=== PATIENT | male | born 1965 | race Caucasian/White ===

== ENCOUNTER → 2021-05-24 13:01 | Outpatient (CLI) | payer MEDICARE, MEDICAID, SELFPAY ==
--- NOTE | 2021-05-24 13:06 | DI.RAD.S_ITS ---
PROCEDURE: XR FOOT LT MIN 3V INDICATIONS: possible dislocation TECHNIQUE: 3 views of the foot were acquired. COMPARISON: None. FINDINGS: Bones: Acute oblique fracture through distal shaft of 5th proximal phalanx is seen with lateral and plantar displacement at fracture site. No other fracture is seen. No dislocation. No suspicious bony lesions. Soft tissues: No tibiotalar joint effusion. Achilles tendon appears normal. IMPRESSION: Acute slightly displaced fracture involving 5th proximal phalangeal shaft as above. Dictated by: Mansoor Alexander M.D. on 05/24/2021 at 13:30 Approved by: Mansoor Alexander M.D. on 05/24/2021 at 13:31
== END ==
PROVIDERS: Family Provider Family Medicine; PCP Family Medicine; Referring Provider Nurse Practitioner Family; Visit Provider Nurse Practitioner Family
DX: S92.532A Displaced fracture of distal phalanx of left lesser toe(s), initial encounter for closed fracture (principal); X58.XXXA Exposure to other specified factors, initial encounter
CPT/HCPCS: 73630

== ENCOUNTER 2021-08-27 12:52 | Emergency (ER) | payer OTHER, MEDICAID, SELFPAY ==
[2021-08-27 13:25] VITALS: BP 160/91; PULSE 75; RESP 18; TEMP 36.7; O2SAT 97; BMI 22.7
--- NOTE | 2021-08-27 13:59 | DI.RAD.S_ITS ---
PROCEDURE: XR CHEST 2V INDICATIONS: Diffuse crackles on auscultation, smoking history TECHNIQUE: 2 views of the chest were acquired. COMPARISON: [facility], , CHEST 2 VIEW, 08/17/2016, 10:25. FINDINGS: Surgical changes and devices: None. Lungs and pleura: Increased reticular markings in bilateral lung valdez are seen with mild emphysematous changes. No focal infiltrate. No pleural effusions or pneumothorax. Mediastinum: Mediastinal contours are normal. Heart size is normal. Bones and chest wall: No suspicious bony abnormalities. Soft tissues appear unremarkable. IMPRESSION: Mild COPD and suggestion of chronic interstitial lung parenchymal disease. No definite focal infiltrate. No pleural effusion or pneumothorax. Dictated by: Mansoor Alexander M.D. on 08/27/2021 at 14:57 Approved by: Mansoor Alexander M.D. on 08/27/2021 at 15:00
--- NOTE | 2021-08-27 14:00 | ED.ABDPAIN ---
HPI - Abdominal Pain <Ignacio Jerez PA-C - Last Filed: 08/27/21 20:03> General Chief Complaint: Abdominal Pain Stated Complaint: Gastritis Time Seen by Provider: 08/27/21 13:17 Source: patient Mode of arrival: Ambulatory History of Present Illness HPI narrative: Patient is a 55-year-old male presenting to the emergency department today for an evaluation of left-sided abdominal pain. Patient states that his pain began at approximately 2:00 a.m. this morning, noting that he also experienced 1 episode of diarrhea this morning. Patient reports associated nausea. Of note, patient states he has not seen his primary care provider in 2 or more years. Patient denies fever, chills, chest pain, constipation, vomiting, dysuria, hematuria, flank pain, or any other concerning symptoms. No further concerns were voiced at this time. Patient reports that he has a 2 pack per day smoking history for the past 30 years. Related Data Home Medications Medication Instructions Recorded Confirmed haloperidol decanoate 100 mg/mL 100 mg IM Q4W 07/10/19 07/10/19 intramuscular solution (Haldol Decanoate) Previous Rx's Medication Instructions Recorded dicyclomine 10 mg capsule 10 mg PO BID #20 cap 08/27/21 Allergies Allergy/AdvReac Type Severity Reaction Status Date / Time codeine [CODEINE] Allergy Unknown Verified 05/24/21 14:06 Review of Systems <Ignacio Jerez PA-C - Last Filed: 08/27/21 20:03> Constitutional Constitutional: Denies chills, Denies fatigue, Denies fever(s), Denies frequent falls, Denies lethargy and Denies weakness Eyes Eyes: Denies loss of vision ENT Ears, Nose, Mouth, and Throat: Denies dizziness and Denies neck pain Cardiovascular Cardiovascular: Denies chest pain, Denies irregular heart rhythm, Denies lightheadedness, Denies palpitations, Denies dyspnea, Denies dyspnea on exertion and Denies orthopnea Respiratory Respiratory: Denies cough, Denies dyspnea, Denies dyspnea on exertion and Denies wheezing Gastrointestinal Gastrointestinal: Reports abdominal pain (Left lower quadrant), Denies change in bowel habits, Denies constipation, Reports diarrhea, Reports nausea and Denies vomiting Genitourinary Genitourinary: Denies hematuria, Denies flank pain, Denies urinary incontinence and Denies urinary urgency Musculoskeletal Musculoskeletal: Denies back pain, Denies muscle weakness, Denies neck pain, Denies numbness and Denies tingling Integumentary/Breasts Skin/Breast: Denies pruritus, Denies erythema, Denies rash and Denies wounds Neurologic Neurologic: Denies behavioral changes, Denies confusion, Denies dizziness, Denies frequent falls, Denies loss of vision, Denies numbness, Denies tingling and Denies weakness Psychiatric Psychiatric: Denies behavioral changes and Denies confusion Endocrine Endocrine: Denies fatigue and Denies palpitations Allergic/Immunologic Allergic/Immunologic: Denies wheezing Patient History <Ignacio Jerez PA-C - Last Filed: 08/27/21 20:03> Medical History Current every day smoker Marijuana smoker Paranoid schizophrenia Surgical History H/O rhinoplasty History of dental surgery Social History Smoking Status: Current every day smoker Smoking Status: Current every day smoker alcohol intake frequency: 3 or more drinks per day Substance Use Type: marijuana Exam <Ignacio Jerez PA-C - Last Filed: 08/27/21 20:03> Narrative Exam Narrative: GENERAL: 55 year old patient appears stated age. Well-developed patient, in no acute distress. HEAD: Atraumatic. Normocephalic. EYES: Pupils equal round and reactive. Extraocular motions intact. No scleral icterus. No injection or drainage. ENT: Nose without bleeding, purulent drainage. Throat without erythema, tonsillar hypertrophy or exudate. Airway patent. NECK: Trachea midline. Non tender CARDIOVASCULAR: Regular rate and rhythm without murmurs, gallops, or rubs. RESPIRATORY: Diffuse crackles noted throughout all lung valdez to auscultation. Breath sounds equal bilaterally. No increased work of breathing. GASTROINTESTINAL: Abdomen soft, nondistended. Mild tenderness to palpation noted over the left lower quadrant. No masses noted across the abdomen. No surgical incision scars noted. EXTREMITIES: No edema or joint tenderness. BACK: Nontender without deformity or crepitance. No flank tenderness. NEURO: AOx3. SKIN: No rash or erythema of visible areas Initial Vital Signs Initial Vital Signs: Vital Signs Temperature 98.1 F 08/27/21 13:25 Pulse Rate 75 08/27/21 13:25 Respiratory Rate 18 08/27/21 13:25 Blood Pressure 160/91 H 08/27/21 13:25 Pulse Oximetry 97 08/27/21 13:25 Course <Ignacio Jerez PA-C - Last Filed: 08/27/21 20:03> Course Course Narrative: CBC, CMP, lipase, EKG, chest x-ray ordered. Orders Ordered: ED Orders 08/27/21 13:55 EKG-12 Lead Stat 08/27/21 13:59 XR chest 2V Stat 08/27/21 14:00 CBC Auto Diff [Complete Blood Count AUTO DIFF] Stat CMP [Comprehensive Metabolic Panel] Stat Lipase Stat Vital Signs Vital signs: Vital Signs - 8 hr 08/27/21 13:25 08/27/21 14:06 08/27/21 15:38 Temperature 98.1 F Pulse Rate 75 74 82 Respiratory Rate 18 Blood Pressure 160/91 H 154/95 H 133/87 Pulse Oximetry 97 97 95 MDM - Abdominal Pain <Ignacio Jerez PA-C - Last Filed: 08/27/21 20:03> Lab Data Result diagrams: 08/27/21 14:00 08/27/21 14:00 Labs: Lab Results 08/27/21 08/27/21 Range/Units 14:00 14:00 WBC 10.3 (4.5-11.0) X10^3/uL RBC 4.83 (4.5-5.9) X10^6/uL Hgb 15.0 (13.5-17.5) g/dL Hct 42.6 (41-53) % MCV 88.2 (80-100) fL MCH 31.0 (26-34) PG MCHC 35.1 (30-36) % RDW 14.6 (11.6-14.8) % Plt Count 253 (150-400) X10^3/uL Neut % (Auto) 76.0 H (50-75) % Lymph % (Auto) 12.3 L (25-40) % [place] % (Auto) 10.2 (3-14) % Eos % (Auto) 1.2 L (2-4) % Baso % (Auto) 0.3 (0-2) % Neut # (Auto) 7800 H (4835-3717) /uL Lymph # (Auto) 1300 (0863-9593) /uL [place] # (Auto) 1100 H (0-900) /uL Eos # (Auto) 100 (0-450) /uL Baso # (Auto) 0 (0-100) /uL Sodium 136 L (137-145) mmol/L Potassium 3.9 (3.4-5.1) mmol/L Chloride 105 (98-107) mmol/L Carbon Dioxide 28 (22-32) mmol/L BUN 8 L (9-20) mg/dL Creatinine 0.61 L (0.66-1.25) mg/dL Estimated GFR > 60.0 (>60) mL/min BUN/Creatinine Ratio 13.1 (6-22) Glucose 97 (70-100) mg/dL Calcium 9.6 (8.4-10.2) mg/dL Total Bilirubin 0.6 (0.2-1.3) mg/dL AST 20 (17-59) IU/L ALT 14 (<50) IU/L Alkaline Phosphatase 35 L (38-126) U/L Total Protein 7.7 (6.3-8.2) g/dL Albumin 4.4 (3.5-5.0) g/dL Globulin 3.3 (1.7-4.1) g/dL Albumin/Globulin Ratio 1.3 (1.0-2.8) Lipase 65 (23-300) U/L Point of care testing: Urine Dip Bedside Urine Glucose Negative Bedside Urine Bilirubin - Negative Bedside Urine Ketone + 15 Urine Specific [place] 1.020 Bedside Urine Occult Blood - Negative Bedside Urine pH 6.5 Bedside Urine Protein - Negative Bedside Urine Urobilinogen - Negative Bedside Urine Nitrite - Negative Bedside Urine Leukocytes - Negative Esterase Imaging Data Chest x-ray: Radiologist's Impression: PROCEDURE:? XR CHEST 2V ? INDICATIONS:? Diffuse crackles on auscultation, smoking history ? TECHNIQUE:? 2 views of the chest were acquired.? ? COMPARISON:? [facility], , CHEST 2 VIEW, 08/17/2016, 10:25. ? FINDINGS:? ? Surgical changes and devices:? None.? ? Lungs and pleura:? Increased reticular markings in bilateral lung valdez are seen with mild emphysematous changes.? No focal infiltrate.? No pleural effusions or pneumothorax.? ? ? Mediastinum:? Mediastinal contours are normal.? Heart size is normal.? ? Bones and chest wall:? No suspicious bony abnormalities.? Soft tissues appear unremarkable.? ? IMPRESSION:? Mild COPD and suggestion of chronic interstitial lung parenchymal disease.? No definite focal infiltrate.? No pleural effusion or pneumothorax. ? ? Dictated by: Mansoor Alexander M.D. on 08/27/2021 at 14:57 ? ? Approved by: Mansoor Alexander M.D. on 08/27/2021 at 15:00 ? MDM Narrative Medical decision making narrative: To consider gastroenteritis versus diverticulitis versus diverticulosis versus constipation versus viral diarrhea. Overall physical examination, history, vital signs, and lab work reassuring. Discussed results of lab work and imaging with patient. I also discussed the possibility of ordering a CT of the abdomen, however the patient declines this at this time. He states he would like to go home and give it 24 hours to see if his pain improves. I discussed risks of foregoing the CT with the patient, however he states he feels comfortable being discharged home. I discussed the results of the chest x-ray with patient and advised him to follow-up with his primary care provider. Patient states understanding and agrees to plan. Strict return precautions were discussed with the patient prior to discharge. Discharge Plan Departure Patient Disposition: Home Clinical Impression: Abdominal pain, Smoker unmotivated to quit, Diarrhea Instructions: DI for Abdominal Pain-Adult Activity Restrictions/Additional Instructions: *You have been diagnosed with abdominal pain diarrhea *What to do: *Please continue to take your regular medications as directed. [X] New medication prescriptions sent to your pharmacy: [facility] [ ] New medication written as a paper prescription [ ] No new medications given *Please follow up with your primary care provider in 2-3 days, call for an appointment. Let them know you were seen in the Emergency Department and that we ask that you be seen in follow up. We will electronically transmit a record of today's note if your PCP is in our system *If you do not have a primary care provider please contact the [facility] Resource line at [phone]. They will ask some questions about your medical history and help get you set up with a doctor in the community. *Return to Emergency Department if you should have any new, worsening or concerning symptoms, such as fever greater than 101 F, shaking chills, worsening pain, persistent vomiting, persistent diarrhea or other bothersome symptoms Prescriptions: New dicyclomine 10 mg capsule 10 mg PO BID Qty: 20 0RF No Action haloperidol decanoate [Haldol Decanoate] 100 mg/mL solution 100 mg IM Q4W 0RF Referrals: Ken Jensen MD [Primary Care Provider] -
[2021-08-27 14:06] VITALS: BP 154/95; PULSE 74; O2SAT 97
[2021-08-27 14:10] LABS: Add Manual Diff / Slide Review NO; Basophils Absolute Auto 0 /uL (0-100); Basophils Percent Auto 0.3 % (0-2); Eosinophils Absolute Auto 100 /uL (0-450); Eosinophils Percent Auto 1.2 % (2-4); Hematocrit 42.6 % (41-53); Lymphocytes Absolute Auto 1300 /uL (1100-4500); Lymphocytes Percent Auto 12.3 % (25-40); Mean Corpuscular HGB Conc 35.1 % (30-36); Mean Corpuscular Volume 88.2 fL (80-100); Monocytes Absolute Auto 1100 /uL (0-900); Monocytes Percent Auto 10.2 % (3-14); Neutrophils Absolute Auto 7800 /uL (1500-7000); Platelet Count 253 X10^3/uL (150-400); Red Blood Cell Count 4.83 X10^6/uL (4.5-5.9); Red Cell Distribution Width 14.6 % (11.6-14.8); White Blood Cell Count 10.3 X10^3/uL (4.5-11.0)
[2021-08-27 14:26] LABS: Alanine Aminotransferase 14 IU/L (<50); Albumin 4.4 g/dL (3.5-5.0); Albumin Globulin Ratio 1.3 (1.0-2.8); Alkaline Phosphatase 35 U/L (38-126); Aspartate Aminotransferase 20 IU/L (17-59); BUN Creatinine Ratio 13.1 (6-22); Bilirubin Total 0.6 mg/dL (0.2-1.3); Blood Urea Nitrogen 8 mg/dL (9-20); Calcium 9.6 mg/dL (8.4-10.2); Carbon Dioxide 28 mmol/L (22-32); Chloride 105 mmol/L (98-107); Estimated Glomerular Filt Rate > 60.0 mL/min (>60); Globulin 3.3 g/dL (1.7-4.1); Glucose 97 mg/dL (70-100); HEMOLYSIS < 15 (0-50); Lipase 65 U/L (23-300); Potassium 3.9 mmol/L (3.4-5.1); Sodium 136 mmol/L (137-145); Total Protein 7.7 g/dL (6.3-8.2)
[2021-08-27 15:38] VITALS: BP 133/87; PULSE 82; O2SAT 95
== END 2021-08-27 15:39 | disposition home or self-care (01) ==
PROVIDERS: Emergency Provider Physician Assistant; Family Provider Family Medicine; PCP Family Medicine
DX: R10.32 Left lower quadrant pain (principal); R19.7 Diarrhea, unspecified; R03.0 Elevated blood-pressure reading, without diagnosis of hypertension
CPT/HCPCS: 36415; 71046; 80053; 81003; 83690; 85025; 93005; 93010; 99283; 99284

== ENCOUNTER → 2021-09-24 10:04 | Outpatient (CLI) | payer OTHER, MEDICAID, SELFPAY ==
--- NOTE | 2021-09-24 | DI.RAD.S_ITS ---
PROCEDURE: XR CHEST 2V INDICATIONS: Chronic cough TECHNIQUE: 2 views of the chest were acquired. COMPARISON: [facility], CR, XR CHEST 2V, 08/27/2021, 14:26. FINDINGS: Surgical changes and devices: None. Lungs and pleura: Mildly coarsened interstitial markings. No consolidation, pleural effusions or pneumothorax. Mediastinum: Mediastinal contours are normal. Heart size is normal. Bones and chest wall: No suspicious bony abnormalities. Soft tissues appear unremarkable. IMPRESSION: No acute cardiopulmonary abnormality. Dictated by: Seymour Carney M.D. on 09/24/2021 at 10:32 Approved by: Seymour Carney M.D. on 09/24/2021 at 10:33
== END ==
PROVIDERS: Family Provider Family Medicine; PCP Family Medicine; Referring Provider Family Medicine; Visit Provider Family Medicine
DX: R05.3 Chronic cough (principal)
CPT/HCPCS: 71046

== ENCOUNTER 2023-01-18 09:31 | Day surgery (SDC) | payer OTHER, MEDICAID, SELFPAY ==
[2023-01-17 07:34] VITALS: BMI 23.6
[2023-01-18] VITALS (7 sets, daily range): BP systolic 109–175; BP diastolic 72–100; PULSE 61–92; RESP 14–22; TEMP 36.2–36.7; O2SAT 92–96; BMI 23.6
[2023-01-18] MEDS: LACTATED RINGERS 1,000 ML 42 ML IV ×2 (10:28→12:58)
--- NOTE | 2023-01-18 11:33 | PM.PREOP ---
Pre-operative Note Interval Note History & Physical reviewed/Exam performed by Physician: Yes Changes to H&P: No
[2023-01-18] MEDS: CEFAZOLIN 2 GM/100 ML PREMIX 100 ML IV (12:20)
--- NOTE | 2023-01-18 12:37 | SUR.OPER ---
Supine on padded OR bed, head on pillow, arms secured on padded arm boards at <90 degrees abduction, legs uncrossed, safety belt at thigh, tape over blanket over lower legs.
[2023-01-18] MEDS: BUPIVACAINE 0.25% (PF) VIAL 30 ML INJ (12:48)
[2023-01-18] MEDS: KETOROLAC 30 MG/ML VIAL IV (14:56)
--- NOTE | 2023-01-18 15:06 | P.OP_ITS ---
Operative Date/Time/Diagnoses Date of procedure: 01/18/23 Time of procedure: 15:06 Pre-op diagnosis: Bilateral inguinal hernia Post-op diagnosis: same Procedure & Clinicians Procedure: Laparoscopic repair of bilateral inguinal hernia Same procedure as scheduled: Yes Indications: Symptomatic bilateral inguinal hernia here for elective repair Surgeon: Evangelist Meier Word Processing Machine Operator: Cory Bailey Click Yes if Unassisted: Yes Anesthesia Type: General Operative Notes Findings: Left small direct defect. Small cord lipoma on the left. Right inguinal hernia large direct floor defect with cord lipoma no indirect hernia. Specimen(s): none sent Estimated Blood Loss (mL): 10 Procedure in detail: The patient was brought to the operating room and placed supine on the table. Bilateral sequential compression devices were applied. General anesthesia was induced and they were intubated with an endotracheal tube. A cruz cath was placed in sterile fashion. They received 2 g Ancef prior to skin incision. They were prepped and draped in sterile fashion. A time out was performed to ensure the correct patient, procedure and necessary equipment within the operating room. The skin was infiltrated with 0.25% bupivicaine. A 1 cm supra umbilical midline incision was made. The fascia was sharply incised and the abdomen entered traumatically. A 10mm balloon port was placed and pneumoperitoneum was established at 15mm Hg. Inspection of the abdomen demonstrated no evidence of i njury upon entry. Two 5 mm ports were then placed under direct visualization in the right and left lower quadrant lateral to the rectus muscle. Bilateral direct hernia defects were noted right greater than left. There were adhesions between the sigmoid colon and the left pelvic side wall which were carefully dissected. Starting on the left side the peritoneum 4 cm superior to the deep inguinal ring between the medial umbilical ligament and the anterior superior iliac spine was incised. The medial preperitoneal dissection was carried out into the space of Retzius bluntly, the bladder was swept inferiorly, the pubis and Anatoliy's ligament were identified. Next attention was turned towards the lateral aspect of the peritoneal flap. The preperitoneal fat with the testicular vessels was carefully dissected off the inferior peritoneal flap. The cord was carefully inspected there was a cord lipoma which was skeltonized off the cord preserving the testicular vessels and the vas deferns, no evidence of an indirect defect.. The attachements to the direct hernia sac were divided and the direct defect was reduced. A large Bard 3D Max mesh was then placed into the abdomen and positioned such that the myopectineal orifice was completely covered with good overlap on all sides. The peritoneal flap was then repositioned back to its original position and a running V lock suture was used to close the peritoneum such that no bowel could herniate into the preperitoneal space. The area was examined for hemostasis. Next the right side was addressed. The peritoneum 4 cm superior to the deep inguinal ring between the medial umbilical ligament and the anterior superior iliac spine was incised. The medial preperitoneal dissection was carried out into the space of Retzius bluntly, the bladder was swept inferiorly, the pubis and Anatoliy's ligament were identified. Next attention was turned towards the lateral aspect of the peritoneal flap. The preperitoneal fat with the testicular vessels was carefully dissected off the inferior peritoneal flap. The cord was carefully inspected there was no evidence of indirect defect there was a small cord lipoma. The attachements to the direct hernia sac were divided and the direct defect was reduced. A large Bard 3D Max mesh was then placed into the abdomen and positioned such that the myopectineal orifice was completely covered with good overlap on all sides. The peritoneal flap was then repositioned back to its original position and a running V lock suture was used to close the peritoneum such that no bowel could herniate into the preperitoneal space. The area was examined for hemostasis. The 5mm trocars were removed under direct visualization and pneumoperitoneum was deflated through the umbilical trocar, The fascia at the umbilicus was closed with 0-Vicryl in figure of 8 fashion, skin closed with 4-0 Monocyl followed by Dermabond. The sponge and instrument count at the end of the case was correct. Both testicles were entirely within the scrotum at the end of the case. The patient emerged from anesthsia was extubated and transferred to recovery in stable condition. Complications: none Post-operative Condition: stable Disposition: same day surgery
[2023-01-18] MEDS: OXYCODONE IR 5 MG TABLET PO (15:08)
[2023-01-18] MEDS: ONDANSETRON 4 MG/2 ML INJ IV (15:29)
== END 2023-01-18 16:05 | disposition home or self-care (01) ==
PROVIDERS: Family Provider Family Medicine; PCP Family Medicine; Referring Provider Surgery; Visit Provider Surgery
PROC: 0YQ64ZZ Repair Left Inguinal Region, Percutaneous Endoscopic Approach (ICD-10-PCS; CPT 49650; principal; 2023-01-18 11:15)
DX: K40.20 Bilateral inguinal hernia, without obstruction or gangrene, not specified as recurrent (principal); D17.6 Benign lipomatous neoplasm of spermatic cord
CPT/HCPCS: 49650; J0690; J1100; J1885; J2250; J2405; J2704; J3010; J3490

== ENCOUNTER 2023-07-19 15:55 | Inpatient (IN) | payer OTHER, MEDICAID, SELFPAY ==
[2023-07-19] VITALS (11 sets, daily range): BP systolic 113–120; BP diastolic 77–83; PULSE 101–112; RESP 16–28; TEMP 36.4–36.5; O2SAT 93–98; BMI 23.6; BMI 19.8
--- NOTE | 2023-07-19 16:11 | DI.RAD.S_ITS ---
PROCEDURE: XR CHEST 1V INDICATIONS: suspected sepsis TECHNIQUE: One view of the chest was acquired. COMPARISON: [facility], CR, XR CHEST 2V, 09/24/2021, 10:00. [facility], CR, XR CHEST 2V, 08/27/2021, 14:26. FINDINGS: Surgical changes and devices: None. Lungs and pleura: Massive left pleural effusion with left-sided atelectasis. Mediastinum: Mediastinal contours appear normal. Heart size is normal. Bones and chest wall: No suspicious bony lesions. Overlying soft tissues appear unremarkable. IMPRESSION: Massive left pleural effusion. Dictated by: Jose Vasquez M.D. on 07/19/2023 at 16:53 Approved by: Jose Vasquez M.D. on 07/19/2023 at 16:54
--- NOTE | 2023-07-19 16:25 | ED.SOB ---
HPI - SOB/Dyspnea General Chief Complaint: Shortness of Breath/Dyspnea Stated Complaint: quite smoking last mon-cant breathetemphardtostand Time Seen by Provider: 07/19/23 16:07 Source: patient Mode of arrival: Wheelchair History of Present Illness HPI Narrative: 57-year-old male with history of schizoaffective disorder presents for shortness of breath, gradually worsening over the last month. Patient states that 1 month ago he quit smoking cigarettes, drinking alcohol, and using marijuana, but he continues to feel short of breath. Today was the worst it has been and so we came in for evaluation. Patient cachectic, appearing much older than stated age on evaluation. Related Data Home Medications Medication Instructions Recorded Confirmed aripiprazole 2 mg tablet (Abilify) 2 mg PO DAILY 01/17/23 02/02/23 Previous Rx's Medication Instructions Recorded acetaminophen 325 mg capsule 650 mg (2 x 325 mg) PO QID PRN 01/18/23 (Tylenol) pain #60 caps ibuprofen 200 mg tablet 400 mg (2 x 200 mg) PO Q6H #60 tabs 01/18/23 Allergies Allergy/AdvReac Type Severity Reaction Status Date / Time codeine [CODEINE] Allergy Unknown Verified 07/19/23 16:05 Review of Systems Review of Systems Narrative: Negative except as noted above Patient History Medical History (Updated 07/19/23 @ 18:25 by Cecille Funez MD) Substance abuse Excessive drinking alcohol Shortness of breath Sinus drainage Chronic cough Hypertension Marijuana smoker Current every day smoker Paranoid schizophrenia Surgical History H/O rhinoplasty History of dental surgery Social History household members: friend(s) Smoking Status: Former smoker alcohol intake: current Smoking Status: Former smoker alcohol intake frequency: 3 or more drinks per day Substance Use Type: does not use Exam Initial Vital Signs Initial Vital Signs: Vital Signs Temperature 97.6 F 07/19/23 16:01 Pulse Rate 112 H 07/19/23 16:01 Respiratory Rate 28 H 07/19/23 16:01 Blood Pressure 120/80 07/19/23 16:01 Pulse Oximetry 95 07/19/23 16:01 Oxygen Delivery Method Room Air 07/19/23 16:01 Const: Awake, alert, and awake, appears markedly older than stated age Eyes: PERRL, EOMI, conjunctiva normal ENT: Atraumatic, extremely poor dentition, mucous membranes moist Cardiac: regular rate, regular rhythm RESP: Unlabored, absent on the left side GI: Atraumatic, soft, nontender, nondistended, no rebound, no guarding MSK: Atraumatic, full range of motion, pulses equal Skin: Warm, Dry, intact, poor skin turgor Neuro: AO x3, CN II-XII grossly intact, moves all extremities Course Orders Ordered: ED Orders 07/19/23 16:11 XR chest 1V Stat Blood Culture Stat RT Consult Eval and Treat NOW 07/19/23 16:21 BNP [NT-proBNP (BNP-Adult 18+)] Stat Complete Blood Count AUTO DIFF Stat Comprehensive Metabolic Panel Stat Lactate (Lactic Acid) Stat Lipase Stat PTT Partial Thromboplastin Wilberto Stat Procalcitonin Stat Prothrombin Time INR Stat 07/19/23 16:41 CT chest w con Stat 07/19/23 17:29 EKG-12 Lead Stat Albuterol/Ipratropium (Albuterol/Ipratropium 3 Ml Ampul) 3 ml INH Q1H PRN PRN Reason: Shortness Of Breath Last Admin: 07/19/23 16:30 Dose: 3 ml Documented By: JOYA Ondansetron HCl (Ondansetron 4 Mg Odt) 4 mg SL NOW PRN PRN Reason: Nausea And Vomiting Discontinued Medications Sodium Chloride (Normal Saline 0.9%) 1,000 mls @ 1,000 mls/hr IV BOLUS ONE Stop: 07/19/23 17:10 Last Admin: 07/19/23 17:17 Dose: 1,000 mls/hr Documented By: HI Cefepime HCl 2 gm/ Sodium (Chloride) 100 mls @ 200 mls/hr IV NOW ONE Stop: 07/19/23 16:42 Last Admin: 07/19/23 17:18 Dose: 200 mls/hr Documented By: HI Ondansetron HCl (Ondansetron 4 Mg/2 Ml Inj) 4 mg IV NOW PRN PRN Reason: Nausea And Vomiting Last Admin: 07/19/23 17:18 Dose: 4 mg Documented By: HI Vital Signs Vital signs: Vital Signs - 8 hr 07/19/23 16:01 07/19/23 16:22 07/19/23 16:23 Temperature 97.6 F Pulse Rate 112 H 102 H 103 H Respiratory Rate 28 H 27 H 27 H Blood Pressure 120/80 Pulse Oximetry 95 93 94 Oxygen Delivery Method Room Air 07/19/23 16:23 07/19/23 16:30 07/19/23 16:38 Temperature Pulse Rate 104 H 102 H Respiratory Rate 27 H 20 Blood Pressure 113/77 Pulse Oximetry 96 94 Oxygen Delivery Method Room Air 07/19/23 17:00 07/19/23 17:30 07/19/23 18:00 Temperature Pulse Rate 101 H 102 H 101 H Respiratory Rate 26 H 21 24 Blood Pressure Pulse Oximetry 97 95 94 Oxygen Delivery Method 07/19/23 18:30 Temperature Pulse Rate 108 H Respiratory Rate 26 H Blood Pressure Pulse Oximetry 95 Oxygen Delivery Method MDM - SOB/Dyspnea Differential Diagnosis Differential diagnosis: Likely acute exacerbation of chronic obstructive airways disease, congestive heart failure and community acquired pneumonia Lab Data 07/19/23 16:21 07/19/23 16:21 Labs: Lab Results 07/19/23 Range/Units 16:21 WBC 20.8 H (4.5-11.0) X10^3/uL RBC 4.04 L (4.5-5.9) X10^6/uL Hgb 11.5 L (13.5-17.5) g/dL Hct 33.9 L (41-53) % MCV 83.8 (80-100) fL MCH 28.4 (26-34) PG MCHC 33.8 (30-36) % RDW 14.9 H (11.6-14.8) % Plt Count 661 H (150-400) X10^3/uL Neut % (Auto) Not Reportable Lymph % (Auto) Not Reportable [place] % (Auto) Not Reportable Eos % (Auto) Not Reportable Baso % (Auto) Not Reportable Lymph # (Auto) Not Reportable [place] # (Auto) Not Reportable Baso # (Auto) Not Reportable Total Counted 100 Seg Neutrophils % 84.0 H (38-70) % Band Neutrophils % 1.0 L (3-7) % Lymphocytes % (Manual) 15.0 L (25-45) % Neutrophils # (Manual) 70300 H (2926-0320) /uL RBC Morphology Normal morphology PT 20.3 H (9.4-12.5) SECONDS INR 1.8 H (0.9-1.3) APTT 27 (25.1-36.5) SECONDS Sodium 122 L (137-145) mmol/L Potassium 4.0 (3.4-5.1) mmol/L Chloride 89 L (98-107) mmol/L Carbon Dioxide 27 (22-32) mmol/L BUN 12 (9-20) mg/dL Creatinine 0.33 L (0.66-1.25) mg/dL Estimated GFR > 60 (>60) mL/min BUN/Creatinine Ratio 36.4 H (6-22) Glucose 118 H (70-100) mg/dL Lactate 1.3 (0.7-2.1) mmol/L Calcium 8.4 (8.4-10.2) mg/dL Total Bilirubin 0.6 (0.2-1.3) mg/dL AST 75 H (17-59) IU/L ALT 96 H (<50) IU/L Alkaline Phosphatase 64 (38-126) U/L NT-Pro-B Natriuret Pep 282 H (<125) pg/mL Total Protein 6.6 (6.3-8.2) g/dL Albumin 2.8 L (3.5-5.0) g/dL Globulin 3.8 (1.7-4.1) g/dL Albumin/Globulin Ratio 0.7 L (1.0-2.8) Lipase 62 (23-300) U/L Procalcitonin 0.21 (<0.5) ng/mL [facility] Narrative Medical decision making narrative: Cachectic and chronically unwell appearing patient with worsening shortness of breath. Preliminary chest x-ray shows near complete opacification of the left hemithorax, concern is for pleural effusion versus cancerous process. Laboratory work shows leukocytosis of uncertain specificity, however we will empirically treat with cefepime. Chest CT confirms large left-sided pleural effusion. Plan to admit for thoracentesis and further medical treatment. Discharge Plan Departure Patient Disposition: Admitted As Inpatient Clinical Impression: Pleural effusion, Acute dyspnea, Cachexia
[2023-07-19] MEDS: ALBUTEROL/IPRATROPIUM 3 ML AMPUL INH (16:30)
[2023-07-19 16:35] LABS: Hematocrit 33.9 % (41-53); Hemoglobin 11.5 g/dL (13.5-17.5); Mean Corpuscular HGB Conc 33.8 % (30-36); Mean Corpuscular Hemoglobin 28.4 PG (26-34); Mean Corpuscular Volume 83.8 fL (80-100); Platelet Count 661 X10^3/uL (150-400); Red Blood Cell Count 4.04 X10^6/uL (4.5-5.9); Red Cell Distribution Width 14.9 % (11.6-14.8); White Blood Cell Count 20.8 X10^3/uL (4.5-11.0)
[2023-07-19 16:40] LABS: Add Manual Diff / Slide Review YES
--- NOTE | 2023-07-19 16:41 | DI.CT.S_ITS ---
PROCEDURE: CT CHEST W CON INDICATIONS: ABNORMAL CXR TECHNIQUE: After the administration of intravenous contrast, 5 mm thick sections acquired from the pulmonary apices to the posterior costophrenic angles. 1 mm axial lung, 5 mm thick coronal and sagittal reformats and 7 mm axial MIP were acquired. For radiation dose reduction, the following was used: automated exposure control, adjustment of mA and/or kV according to patient size. COMPARISON: None. FINDINGS: Image quality: Excellent Lungs and pleura: The right lung has no focal consolidation, mass, pneumothorax, or pleural effusion. In the right middle lobe patchy areas of infiltrate are noted noted. The left line is opacified with a large pleural effusion which causes mass effect pushing the mediastinum from left to right. Adjacent compressive atelectasis in the left lung is seen. Mediastinum: Heart size is normal. No pericardial effusion. No mediastinal or hilar adenopathy by size criteria. Thoracic aorta and central pulmonary arteries are normal in size. Esophagus is normal in caliber. No hiatal hernia. Bones and chest wall: No suspicious bony lesions. No vertebral body compression fractures. No axillary or supraclavicular adenopathy by size criteria. No thyroid nodules which require sonographic follow up, per consensus guidelines. Upper Abdomen: Visualized upper abdominal solid organs appear normal. Upper abdominal bowel loops are normal in caliber. IMPRESSION: Large left pleural effusion encompassing the entire left lung and causing [id number] mediastinal shift. Dictated by: Ward Orourke M.D. on 07/19/2023 at 16:47 Approved by: Ward Orourke M.D. on 07/19/2023 at 16:50
[2023-07-19 16:48] LABS: INR 1.8 (0.9-1.3); Prothrombin Time 20.3 SECONDS (9.4-12.5)
[2023-07-19 16:50] LABS: PTT Partial Thromboplastin Tim 27 SECONDS (25.1-36.5)
[2023-07-19 16:51] LABS: Lactate (Lactic Acid) 1.3 mmol/L (0.7-2.1)
[2023-07-19 16:52] LABS: Alanine Aminotransferase 96 IU/L (<50); Albumin 2.8 g/dL (3.5-5.0); Albumin Globulin Ratio 0.7 (1.0-2.8); Alkaline Phosphatase 64 U/L (38-126); Aspartate Aminotransferase 75 IU/L (17-59); BUN Creatinine Ratio 36.4 (6-22); Bilirubin Total 0.6 mg/dL (0.2-1.3); Blood Urea Nitrogen 12 mg/dL (9-20); Calcium 8.4 mg/dL (8.4-10.2); Carbon Dioxide 27 mmol/L (22-32); Chloride 89 mmol/L (98-107); Estimated Glomerular Filt Rate > 60 mL/min (>60); Globulin 3.8 g/dL (1.7-4.1); Glucose 118 mg/dL (70-100); HEMOLYSIS < 15 (0-50); Lipase 62 U/L (23-300); Sodium 122 mmol/L (137-145); Total Protein 6.6 g/dL (6.3-8.2)
[2023-07-19 17:00] LABS: NT-proBNP (BNP-Adult 18+) 282 pg/mL (<125)
[2023-07-19 17:08] LABS: Procalcitonin 0.21 ng/mL (<0.5)
[2023-07-19] MEDS: SODIUM CHLORIDE 0.9% 1,000 ML 1000 ML IV (17:17)
[2023-07-19] MEDS: ONDANSETRON 4 MG/2 ML INJ IV (17:18)
[2023-07-19] MEDS: CEFEPIME 2 GM in SODIUM CHLORIDE 0.9% 100 ML IV (17:18)
[2023-07-19 17:30] LABS: Neutrophils Absolute Manual 17680 /uL (3000-5900); RBC Morphology Normal Morphology; Total Cells Counted 100
[2023-07-19 19:48] LABS: Appearance Urine UA CLEAR; Bilirubin Urine UA NEGATIVE (NEGATIVE); Color Urine UA YELLOW; Glucose Urine UA NEGATIVE (Negative); Ketones Urine UA TRACE (NEGATIVE); Leukocyte Esterase Urine UA NEGATIVE (NEGATIVE); Nitrite Urine UA NEGATIVE (Negative); Occult Blood Urine UA NEGATIVE (Negative); Protein Urine UA NEGATIVE (Negative); Specific Gravity Urine UA <=1.005 (1.000-1.035); pH Urine UA 6.5 (4.5-8.0)
[2023-07-19 19:58] LABS: Bacteria Urine None Seen; Culture Indicated Urine Cult Not Indicated; RBC Urine 0-1/HPF (0-5/HPF); Squamous Epithelial Cell Urine 0-1 /HPF (0-5/HPF); WBC Urine None Seen (0-5/HPF)
--- NOTE | 2023-07-19 20:21 | DI.RAD.S_ITS ---
PROCEDURE: XR CHEST 1V INDICATIONS: post-thoracentesis TECHNIQUE: One view of the chest was acquired. COMPARISON: [facility], CT, CT CHEST W CON, 07/19/2023, 16:52. [facility], CR, XR CHEST 1V, 07/19/2023, 16:17. [facility], CR, XR CHEST 2V, 09/24/2021, 10:00. FINDINGS: Surgical changes and devices: None. Lungs and pleura: Near complete opacification of the left hemithorax, similar. No pneumothorax. Large left pleural effusion. Mediastinum: Rightward shift of the mediastinal structures, similar. Heart size is obscured. Bones and chest wall: No suspicious bony lesions. Overlying soft tissues appear unremarkable. IMPRESSION: No pneumothorax post thoracentesis. Large left pleural effusion. Dictated by: Jack Pack M.D. on 07/19/2023 at 21:10 Approved by: Jack Pack M.D. on 07/19/2023 at 21:11
--- NOTE | 2023-07-19 20:25 | DI.US.S_ITS ---
PROCEDURE: US THORACENTESIS INDICATIONS: pleural effusion left TECHNIQUE: The indications, alternatives, benefits, risks, and complications of the procedure were explained to the patient. Written informed consent was obtained and placed in the chart. The chest was examined sonographically, and an appropriate site was chosen for thoracentesis. The skin was prepared and draped in the usual sterile fashion, and 1% lidocaine was infiltrated from the skin down through the pleural surface. A 19-gauge catheter-covered needle was then introduced into the pleural space, the catheter was advanced and the needle was withdrawn, and thereafter pleural fluid was aspirated. The catheter was then removed and a dressing was applied. COMPARISON: CT chest 07/19/2023. FINDINGS: Access site: Left hemithorax. Needle: One-Step centesis catheter with introducer needle. Fluid volume and description: 1100 cc of purulent and malodorous fluid Fluid sent for diagnostic testin cc were sent for diagnostic imaging as ordered by provider Medications: 1% lidocaine for local anaesthesia. Complications: None; post-procedural chest radiograph demonstrates no pneumothorax IMPRESSION: Large left pleural effusion with thin loculations status post successful thoracentesis. Findings are concerning for empyema. Recommend pulmonology/general surgery consult and drain placement. Findings and recommendations were conveyed to Dr. Estrada by Dr. Marcial at 4:00 p.m. on 07/20/2023. Approved by: Staci Marcial M.D. on 07/20/2023 at 18:48
[2023-07-19] MEDS: LORazepam 1 MG TABLET 2 MG PO (21:09)
[2023-07-19] MEDS: SODIUM CHLORIDE 0.9% 1,000 ML 125 ML IV (21:11)
[2023-07-20] VITALS (13 sets, daily range): BP systolic 101–120; BP diastolic 67–86; PULSE 87–114; RESP 16–24; TEMP 36.4–37.9; O2SAT 91–97
--- NOTE | 2023-07-20 | DI.RAD.S_ITS ---
PROCEDURE: XR CHEST 1V INDICATIONS: POST THORACENTESIS TECHNIQUE: One view of the chest was acquired. COMPARISON: [facility], CR, XR CHEST 1V, 07/19/2023, 20:39. [facility], CR, XR CHEST 1V, 07/19/2023, 16:17. FINDINGS: Surgical changes and devices: None. Lungs and pleura: Large left pleural effusion with rightward mediastinal shift. Pleural effusion has slightly decreased since prior radiograph 06/18/2023. No pneumothorax. Right lung is clear. Mediastinum: Mediastinum is unchanged. Bones and chest wall: No suspicious bony lesions. Overlying soft tissues appear unremarkable. IMPRESSION: Status post left thoracentesis with slightly decreased size of large left pleural effusion. No pneumothorax. Dictated by: Staci Marcial M.D. on 07/20/2023 at 18:35 Approved by: Staci Marcial M.D. on 07/20/2023 at 18:36
[2023-07-20] MEDS: ALBUTEROL 2.5 MG/3 ML NEB (ADULT) INH ×3 (03:05→16:55)
[2023-07-20] MEDS: CEFEPIME 2 GM in SODIUM CHLORIDE 0.9% 100 ML IV ×2 (04:49→17:26)
[2023-07-20] MEDS: MAG HYDROX/ALUM/SIMETH 30 ML UDC PO (04:51)
[2023-07-20] MEDS: SODIUM CHLORIDE 0.9% 1,000 ML 125 ML IV ×3 (04:52→22:24)
[2023-07-20 06:23] LABS: Add Manual Diff / Slide Review NO; Basophils Absolute Auto 100 /uL (0-100); Basophils Percent Auto 0.5 % (0-2); Eosinophils Absolute Auto 0 /uL (0-450); Eosinophils Percent Auto 0.2 % (2-4); Hematocrit 30.2 % (41-53); Hemoglobin 10.2 g/dL (13.5-17.5); Lymphocytes Absolute Auto 1200 /uL (1100-4500); Lymphocytes Percent Auto 6.4 % (25-40); Mean Corpuscular HGB Conc 33.6 % (30-36); Mean Corpuscular Hemoglobin 28.2 PG (26-34); Mean Corpuscular Volume 84.1 fL (80-100); Monocytes Absolute Auto 1500 /uL (0-900); Monocytes Percent Auto 8.3 % (3-14); Neutrophils Absolute Auto 15200 /uL (1500-7000); Neutrophils Percent Auto 84.6 % (50-75); Platelet Count 596 X10^3/uL (150-400); Red Cell Distribution Width 14.7 % (11.6-14.8)
[2023-07-20 06:40] LABS: Alanine Aminotransferase 79 IU/L (<50); Albumin 2.4 g/dL (3.5-5.0); Albumin Globulin Ratio 0.7 (1.0-2.8); Alkaline Phosphatase 61 U/L (38-126); Aspartate Aminotransferase 59 IU/L (17-59); BUN Creatinine Ratio 39.4 (6-22); Bilirubin Total 0.4 mg/dL (0.2-1.3); Blood Urea Nitrogen 13 mg/dL (9-20); Calcium 8.1 mg/dL (8.4-10.2); Carbon Dioxide 28 mmol/L (22-32); Chloride 93 mmol/L (98-107); Estimated Glomerular Filt Rate > 60 mL/min (>60); Globulin 3.4 g/dL (1.7-4.1); Glucose 121 mg/dL (70-100); HEMOLYSIS < 15 (0-50); Potassium 4.1 mmol/L (3.4-5.1); Sodium 124 mmol/L (137-145); Total Protein 5.8 g/dL (6.3-8.2)
[2023-07-20] MEDS: THIAMINE 100 MG TABLET PO (09:55)
[2023-07-20] MEDS: MULTIVITAMIN 1 TABLET 1 TAB PO (09:55)
[2023-07-20] MEDS: ENOXAPARIN 40 MG/0.4 ML SYRINGE SUBCUT (09:55)
[2023-07-20] MEDS: FOLIC ACID 1 MG TABLET PO (09:55)
--- NOTE | 2023-07-20 11:04 | DIET.CONS ---
Dietary Consultation Note Admission Date: 07/19/2023 19:13 Assessment: 57M admitted with SOB has PMH of schizoaffective DO. RD consulted for weight loss. Weight hx in EMR indicates a 12kg (17.5%) weight loss. He reports this weight loss occurred over 3 months (severe). Nutrition Focused Physical Exam: severe temporal depression, boxed shoulders, protruding clavicle, and depressed interosseous muscle. States this weight loss is r/t a schizophrenic episodeduring which he would eat less than once per day often. He could not eat due to food talks to me during such episodes. States he cannot even eat shakes during episodes. Has used ONS in the past to help with weight. Confirms adequate access to food via SNAP benefits and usual social security income. Aware of pantry options per report. Endorses improved appetite since admission with 100% PO. Ht: 170.18 cm Wt: 57.606 kg BMI: 19.8 UBW: 68kg Last BM: 07/18/23 (07/19/23 20:41) MNA: 10 Mitchell Score: 21 Diet: 07/19/23 Breakfast General (Regular) Diet Diet Modifications: Nutrition Percent Meal Consumed 100% 07/20/23 00:23 Labs: RBC 3.60 X10^6/uL (4.5-5.9) L 07/20/23 05:45 Hgb 10.2 g/dL (13.5-17.5) L 07/20/23 05:45 Hct 30.2 % (41-53) L 07/20/23 05:45 Creatinine 0.33 mg/dL (0.66-1.25) L 07/20/23 05:45 Lactate 1.3 mmol/L (0.7-2.1) 07/19/23 16:21 NT-Pro-B Natriuret Pep 282 pg/mL (<125) H 07/19/23 16:21 Nutrition Diagnosis: Acute severe protein calorie malnutrition r/t inadequate PO with reported schizophrenic episode aeb severe muscle mass/fat losses, >5% weight loss in one month, and reported <75% EER for one month. -The patient is at much higher risk for medical and surgical complications because of his malnutrition.? This increases the difficulty and complexity of medical and surgical interventions and increases the chances of poor outcomes such as morbidity and mortality. Interventions: 1. Discussed importance of high kcal/high pro intake 2. Reviewed ONS and home shakes nutrition 3. High kcal ONS BID while admitted 4. Encouraged 2-3 ONS after discharge so regain adequate muscle mass/weight EER: 102-114g PRO (1.8-2g/kg per malnutrition) ; 2200-2300kcal (38-40kcal/kg per BMI) Monitoring/Evaluations: RD f/u 3-4 days (ONS tolerance, weight, PO) Electronically Signed by: Kat Orellana 07/20/23 11:04 Clinical Dietitian [address] [address]
--- NOTE | 2023-07-20 11:41 | PM.HP.1 ---
History of Present Illness History of Present Illness Date Patient Seen: 07/20/23 Time Patient Seen: 09:00 Chief complaint: quite smoking last mon-cant breathetemphardtostand Narrative: CC: shortness of breath and cough Pleasant gentleman with generally well controlled schizophrenia presented to ED with worsening cough and shortness of breath yesterday, found to have elevated WBCs and a pleural effusion. Extensive 100 pack year smoking history. Quit smoking drinking last month. L sided thoracic whiteout on XR; planning to get thoracentesis, continuing antibiotics for now given leukocytosis with neutropenic predominance. He reports feeling ok, appetite is good he is able to get up to bathroom ok. [facility] Medical History (Updated 07/19/23 @ 18:25 by Cecille Funez MD) Substance abuse Excessive drinking alcohol Shortness of breath Sinus drainage Chronic cough Hypertension Marijuana smoker Current every day smoker Paranoid schizophrenia Surgical History H/O rhinoplasty History of dental surgery Social History household members: friend(s) Smoking Status: Former smoker alcohol intake: former Meds Home Medications and Allergies Home Medications Medication Instructions Recorded Confirmed Type acetaminophen 325 mg capsule 650 mg (2 x 325 mg) PO QID PRN 01/18/23 07/19/23 Rx (Tylenol) pain #60 caps ibuprofen 200 mg tablet 400 mg (2 x 200 mg) PO Q6H #60 tabs 01/18/23 07/19/23 Rx aripiprazole 2 mg tablet 2 mg PO DAILY 07/19/23 07/19/23 History Allergies Allergy/AdvReac Type Severity Reaction Status Date / Time codeine [CODEINE] Allergy Unknown Verified 07/19/23 16:05 Review of Systems Review of Systems Narrative: all systems reviewed and negative except as otherwise documented in HPI Exam Vital Signs (past 8 hours): - 07/20/23 04:00 07/20/23 08:00 07/20/23 08:20 Temperature 97.6 F 100.2 F H Pulse Rate 109 H 104 H 102 H Respiratory Rate 17 18 24 Blood Pressure 104/75 106/68 Pulse Oximetry 94 93 93 Oxygen Delivery Method Room Air Oxygen Flow Rate 0 Oxygen Delivery Method Room Air Oxygen Flow Rate 0 Narrative Exam Narrative: alert sitting up in chair Const Nutritional Appearance: cachectic HENMT Other: normocephalic atraumatic Resp Other: junky rhoncorous lungs bilaterally decreased breath sounds on L Cardio Other: elevated rate S1/S2 GI Other: soft nontender nondistended Neuro Other: AAOx3, moving all limbs, CN 2-12 grossly intact Psych Other: normal mood, affect, and thought process Objective Labs 07/20/23 05:45 07/20/23 15:40 Labs: Laboratory Results - last 24 hr 07/19/23 07/19/23 07/20/23 16:21 18:43 05:45 WBC 20.8 H 18.0 H RBC 4.04 L 3.60 L Hgb 11.5 L 10.2 L Hct 33.9 L 30.2 L MCV 83.8 84.1 MCH 28.4 28.2 MCHC 33.8 33.6 RDW 14.9 H 14.7 Plt Count 661 H 596 H Neut % (Auto) Not Reportable 84.6 H Lymph % (Auto) Not Reportable 6.4 L [place] % (Auto) Not Reportable 8.3 Eos % (Auto) Not Reportable 0.2 L Baso % (Auto) Not Reportable 0.5 Neut # (Auto) 45810 H Lymph # (Auto) Not Reportable 1200 [place] # (Auto) Not Reportable 1500 H Eos # (Auto) 0 Baso # (Auto) Not Reportable 100 Total Counted 100 Seg Neutrophils % 84.0 H Band Neutrophils % 1.0 L Lymphocytes % (Manual) 15.0 L Neutrophils # (Manual) 21458 H RBC Morphology Normal morphology PT 20.3 H INR 1.8 H APTT 27 Sodium 122 L 124 L Potassium 4.0 4.1 Chloride 89 L 93 L Carbon Dioxide 27 28 BUN 12 13 Creatinine 0.33 L 0.33 L Estimated GFR > 60 > 60 BUN/Creatinine Ratio 36.4 H 39.4 H Glucose 118 H 121 H Lactate 1.3 Calcium 8.4 8.1 L Total Bilirubin 0.6 0.4 AST 75 H 59 ALT 96 H 79 H Alkaline Phosphatase 64 61 NT-Pro-B Natriuret Pep 282 H Total Protein 6.6 5.8 L Albumin 2.8 L 2.4 L Globulin 3.8 3.4 Albumin/Globulin Ratio 0.7 L 0.7 L Lipase 62 Procalcitonin 0.21 Urine Color Yellow Urine Appearance Clear Urine pH 6.5 Ur Specific [place] <=1.005 Urine Protein Negative Urine Glucose (UA) Negative Urine Ketones Trace H Urine Occult Blood Negative Urine Nitrate Negative Urine Bilirubin Negative Urine Urobilinogen 1.0 Ur Leukocyte Esterase Negative Urine RBC 0-1/hpf Urine WBC None seen Ur Squamous Epith Cells 0-1 /hpf Urine Bacteria None seen Ur Culture Indicated? Cult not indicated Assessment & Plan Assessment & Plan narrative: #Pleural effusion #long smoking history thoracentesis today with pleural fluid analysis for Light's criteria #empyema 1000mL pus with loculations removed from L hemithorax by radiology during thoracentesis, consulting surgery for chest tube #putative pneumonia #elevated WBCs continue cefepime, seems like some improvement since yesterday, cultures pending #severe protein-calorie malnutrition general diet, encourage ensure supplements #schizophrenia stable continue home abilify dispo: complex issue with obvious lung impairment requiring IV therapy and interventional radiology procedure for thoracentesis. probably at least 3 days. Merits inpatient admission with empyema. MDM: sister code: DNR - ok to intubate PCP: Mikey diet: general Quality VTE Deep Vein Thrombosis/Pulmonary Embolism Present on Admission: No
--- NOTE | 2023-07-20 11:50 | CM.DANOTE ---
DCP: Case received, EMR reviewed and met with patient. Introduced self and role. Was able to obtain information regarding patient's baseline activity status at home as well as his current living situation. DCP assessment completed with information currently available. Patient is a 57 year old male who admitted yesterday evening to the care of the hospitalist team. PCP: Dr. Jensen. Payer: confirmed: [employer] Advantage. Patient came to the hospital via private vehicle secondary to having increased shortness of breath, worsening over the last month. Patient has history of schizoaffective disorder, and recently stopped smoking and using alcohol in the last month. Patient's symptoms had gotten worse. Patient was diagnosed with pleural effusion, is expected to have a thoracentesis. Met with patient in his room. He is alert and oriented, and up in his chair having his breakfast. Confirmed that he resides here in [place] alone, has a sister, Jame Ellison out of state, and his father, Houston Miller, lives in [place]. Patient is independent at his baseline, and does not drive, rides his bike, indicated, he has not driven since his DUI in 1992. He also indicated, he does have shizoaffective order, feels like he is coming off of his high. Stated that he has stopped drinking and using cigarrettes for the last month. P: DCP to continue to follow for needs. Plan most likely will be home when stable. May need a taxi home through his Medicaid. Naomi Arzola RN/Human Resources Trainee Discharge Planning/Care Management CM Discharge Assessment Start: 07/20/23 11:48 Freq: Status: Active Protocol: Document 07/20/23 11:49 (Rec: 07/20/23 11:50 [id number]) Discharge Planning Assessment Assigned Dye Winch Operator Naomi Arzola RN/Human Resources Trainee Advance Directives? No History Provided By Patient,Medical Record Prior Living Arrangements House Household Members friend(s) Type of transporation used prior to Public Transportation admit Comment Rides a bike as well. Independent with ADL's Yes Is patient alert and oriented? Yes Caregiver for Another No Barriers to Discharge No Discharge Plan Home Transportation Arrangement Self, may need taxi. Referrals Initiated None needed Whiteboard Updated in Patient Room with Yes name and ext. # of Dye Winch Operator Review Status In Process Next Review Type Continued Stay Review
[2023-07-20] MEDS: LORazepam 1 MG TABLET PO (13:26)
[2023-07-20 15:58] LABS: Glucose 106 mg/dL (70-100); Lactate Dehydrogenase 137 U/L (120-246); Total Protein 5.9 g/dL (6.3-8.2)
[2023-07-20 17:33] LABS: Body Fluid Red Blood Cells 0 /uL
[2023-07-20 17:37] LABS: Body Fluid Appearance TURBID; Body Fluid Clotted? NO CLOTS PRESENT; Body Fluid Color YELLOW
[2023-07-20] MEDS: VANCOMYCIN 1,500 MG/300 ML PIGGYBACK 200 MG IV (17:42)
[2023-07-20] MEDS: ACETAMINOPHEN 325 MG TABLET 650 MG PO (18:40)
[2023-07-20 19:28] LABS: Mononuclear WBC Body Fluid 60 %; Polynuclear WBC Body Fluid 40 %
[2023-07-20] MEDS: PIPERACILLIN/TAZO 4.5 GM in SODIUM CHLORIDE 0.9% 100 ML IV (19:48)
[2023-07-21] VITALS (8 sets, daily range): BP systolic 103–126; BP diastolic 69–77; PULSE 89–114; RESP 18–24; TEMP 36.4–37.6; O2SAT 90–95
[2023-07-21] MEDS: VANCOMYCIN 1,000 MG/200 ML PIGGYBACK 200 MG IV ×3 (00:51→18:40)
[2023-07-21] MEDS: PIPERACILLIN/TAZO 3.375 GM in SODIUM CHLORIDE 0.9% 100 ML IV ×3 (00:54→20:57)
[2023-07-21] MEDS: ALBUTEROL 2.5 MG/3 ML NEB (ADULT) INH ×4 (07:46→23:30)
[2023-07-21] MEDS: MULTIVITAMIN 1 TABLET 1 TAB PO (08:13)
[2023-07-21] MEDS: THIAMINE 100 MG TABLET PO (08:13)
[2023-07-21] MEDS: FOLIC ACID 1 MG TABLET PO (08:13)
[2023-07-21] MEDS: ENOXAPARIN 40 MG/0.4 ML SYRINGE SUBCUT (08:14)
--- NOTE | 2023-07-21 08:44 | P.PN_ITS ---
Subjective Subjective Date Patient Seen: 07/21/23 Time Patient Seen: 08:45 Interval history: Patient seen in follow-up of empyema and hyponatremia Patient feeling much better today. Still short of breath but not as short of breath. No further fevers. No other changes. Mentally feeling well. No chest pain no shortness a breath Exam Vital Signs (past 8 hours): - 07/21/23 04:00 07/21/23 07:46 07/21/23 07:46 Temperature 99.2 F Pulse Rate 89 92 H 98 H Respiratory Rate 18 20 Blood Pressure 113/75 Pulse Oximetry 94 90 L 95 Oxygen Delivery Method Room Air Oxygen Flow Rate 0 0 Oxygen Delivery Method Room Air Oxygen Flow Rate 0 Narrative Exam Narrative: Alert male mildly short of breath in no acute distress cachectic in appearance Lungs decreased breath sounds left side otherwise clear. Heart is regular rate and rhythm. Extremities without edema. Objective Labs 07/20/23 05:45 07/20/23 15:40 Labs: Laboratory Results - last 24 hr 07/20/23 07/20/23 07/20/23 15:30 15:31 15:40 Glucose 106 H Lactate Dehydrogenase 137 Total Protein 5.9 L Fluid Color Yellow Fluid Appearance Turbid Fluid RBC 0 Fld Tot Nucleated Cell 361357 Fluid Polynuclear WBCs 40 Fluid Mononuclear WBCs 60 Fluid Eosinophils Not Reportable Fluid Other Cells Not Reportable Body Fluid Clot No clots present Ref Test (Refrig) Cancelled [facility] Medical History (Updated 07/19/23 @ 18:25 by Cecille Funez MD) Substance abuse Excessive drinking alcohol Shortness of breath Sinus drainage Chronic cough Hypertension Marijuana smoker Current every day smoker Paranoid schizophrenia Surgical History H/O rhinoplasty History of dental surgery Social History household members: friend(s) Smoking Status: Former smoker alcohol intake: former Assessment & Plan Assessment & Plan narrative: Pleural effusion/empyema. G stain showed no bacteria. Culture is pending. Markedly improved on new antibiotics. Will continue for today. Discussed with surgeon. Whether or not we need a chest tube is unclear at this point. He would like to give it another 24 hours and repeat chest CT and then make decision. Still unclear whether this is potentially cancerous. Awaiting cytology. No definitive mass seen. We discussed with the patient. He understands. Questions answered. Pneumonia. On antibiotics. Doing well. Respiratory failure. Actually seems to be doing well. No other changes. Not needing O2 at this time but not mobilizing much. Hyponatremia. Not checked today. Will rechecked tomorrow. Continue IV fluids can discontinue tomorrow if better. Severe protein malnutrition. General diet encouraged ensure. Dietitian consult. Schizophrenia. Actually doing quite well. Continue Abilify. History of alcohol abuse stable. No evidence of withdrawal. History of cigarette abuse. Four pack a day smoker. Off for the last 2 weeks. Will continue to support and follow. Code status DNR. DVT prophylaxis on Lovenox. Disposition. Probably will be here for 48-72 more hours. Will depend on whether he gets a chest tube or not. And response to antibiotics. Will follow- up in a.m.. 45 minutes spent with patient surgeon chart review orders dictation Quality VTE Deep Vein Thrombosis/Pulmonary Embolism Present on Admission: No
[2023-07-21 10:02] LABS: Add Manual Diff / Slide Review NO; Basophils Absolute Auto 0 /uL (0-100); Basophils Percent Auto 0.4 % (0-2); Eosinophils Absolute Auto 100 /uL (0-450); Eosinophils Percent Auto 0.6 % (2-4); Hematocrit 32.3 % (41-53); Lymphocytes Absolute Auto 1000 /uL (1100-4500); Lymphocytes Percent Auto 7.5 % (25-40); Mean Corpuscular Hemoglobin 28.6 PG (26-34); Mean Corpuscular Volume 84.2 fL (80-100); Monocytes Absolute Auto 900 /uL (0-900); Monocytes Percent Auto 7.3 % (3-14); Neutrophils Absolute Auto 10800 /uL (1500-7000); Neutrophils Percent Auto 84.2 % (50-75); Platelet Count 577 X10^3/uL (150-400); Red Blood Cell Count 3.84 X10^6/uL (4.5-5.9); Red Cell Distribution Width 14.9 % (11.6-14.8); White Blood Cell Count 12.8 X10^3/uL (4.5-11.0)
[2023-07-21 10:11] LABS: Alanine Aminotransferase 76 IU/L (<50); Albumin 2.1 g/dL (3.5-5.0); Albumin Globulin Ratio 0.7 (1.0-2.8); Alkaline Phosphatase 64 U/L (38-126); Aspartate Aminotransferase 59 IU/L (17-59); BUN Creatinine Ratio 21.2 (6-22); Bilirubin Total 0.3 mg/dL (0.2-1.3); Blood Urea Nitrogen 7 mg/dL (9-20); Calcium 7.7 mg/dL (8.4-10.2); Carbon Dioxide 25 mmol/L (22-32); Chloride 96 mmol/L (98-107); Estimated Glomerular Filt Rate > 60 mL/min (>60); Globulin 2.9 g/dL (1.7-4.1); Glucose 148 mg/dL (70-100); HEMOLYSIS < 15 (0-50); Sodium 128 mmol/L (137-145)
--- NOTE | 2023-07-21 13:39 | CM.DPC ---
DCP Cont. Reviewed EMR and team rounds for status updates. Cultures remain pending. May need HH upon d/c, plan to meet w/him tomorrow to discuss preferences. Monitor for possible d/c tomorrow 07/22/23.
--- NOTE | 2023-07-21 14:35 | DIET.CONS ---
Dietary Consultation Note Admission Date: 07/19/2023 19:13 Assessment: Pt tolerating ONS well. Asking for ONS TID. Ok to provide lunch ONS (regular ensure), especially if PO at lunch <75%. Currently receiving high kcal ONS BID. Hct, Na, Cl cont to be low but trending up. Ht: 170.18 cm Wt: 57.606 kg BMI: 19.8 Last BM: 07/18/23 (07/19/23 20:41) MNA: 10 Mitchell Score: 21 Diet: 07/19/23 Breakfast General (Regular) Diet Diet Modifications: Nutrition Percent Meal Consumed 50% 07/21/23 12:40 Percent Meal Consumed 100% 07/21/23 08:58 Percent Meal Consumed 25% 07/20/23 23:04 Percent Meal Consumed 75% 07/20/23 18:27 Percent Meal Consumed 100% 07/20/23 00:23 Labs: RBC 3.84 X10^6/uL (4.5-5.9) L 07/21/23 09:34 Hgb 11.0 g/dL (13.5-17.5) L 07/21/23 09:34 Hct 32.3 % (41-53) L 07/21/23 09:34 Creatinine 0.33 mg/dL (0.66-1.25) L 07/21/23 09:34 Lactate 1.3 mmol/L (0.7-2.1) 07/19/23 16:21 NT-Pro-B Natriuret Pep 282 pg/mL (<125) H 07/19/23 16:21 Nutrition Diagnosis: Acute severe protein calorie malnutrition r/t inadequate PO with reported schizophrenic episode aeb severe muscle mass/fat losses, >5% weight loss in one month, and reported <75% EER for one month. -The patient is at much higher risk for medical and surgical complications because of his malnutrition.? This increases the difficulty and complexity of medical and surgical interventions and increases the chances of poor outcomes such as morbidity and mortality. EER: 102-114g PRO (1.8-2g/kg per malnutrition) ; 2200-2300kcal (38-40kcal/kg per BMI) Monitoring/Evaluations: RD f/u 3-5 days Electronically Signed by: Kat Orellana 07/21/23 14:[address] [address]
[2023-07-21] MEDS: VANCOMYCIN TROUGH 1 REQUEST MISC (17:00)
[2023-07-21] MEDS: SODIUM CHLORIDE 0.9% 1,000 ML 125 ML IV (17:28)
[2023-07-21 17:51] LABS: Vancomycin Trough 7.1 ug/mL (10-20)
--- NOTE | 2023-07-21 18:45 | PM.CALLCOV.1 ---
Call Coverage Note Note Date of Patient Contact: 07/21/23 Time of Patient Contact: 18:45 Narrative of Care Provided: General Surgery CT Chest 07/22. If remaining loculated pleural effusion chest tube and intrapleural TPA
[2023-07-21] MEDS: LORazepam 1 MG TABLET PO (23:40)
[2023-07-21] MEDS: ACETAMINOPHEN 325 MG TABLET 650 MG PO (23:40)
[2023-07-22] VITALS (9 sets, daily range): BP systolic 101–121; BP diastolic 68–85; PULSE 78–104; RESP 18–22; TEMP 36.1–37.7; O2SAT 92–95
[2023-07-22] MEDS: VANCOMYCIN 1,000 MG/200 ML PIGGYBACK 200 MG IV ×3 (00:31→12:56)
[2023-07-22] MEDS: PIPERACILLIN/TAZO 3.375 GM in SODIUM CHLORIDE 0.9% 100 ML IV ×3 (03:31→19:59)
--- NOTE | 2023-07-22 07:12 | P.PN_ITS ---
Subjective Subjective Date Patient Seen: 07/22/23 Time Patient Seen: 07:20 Interval history: Patient seen and evaluated this morning said he got 6 hours of sleep last night which was good. Patient says his breathing is a little bit easier. He has been up out of bed. Having good urination and bowel movement. Patient is still hypoxic. He says he is eating well. No significant pain. Labs were reviewed. White blood cell count is improving. Mild anemia mild hyponatremia normal kidney function. Exam Vital Signs (past 8 hours): - 07/22/23 03:27 Temperature 96.9 F L Pulse Rate 104 H Respiratory Rate 18 Blood Pressure 121/85 Pulse Oximetry 93 Oxygen Flow Rate 0 Oxygen Delivery Method Room Air Oxygen Flow Rate 0 Narrative Exam Narrative: Gen.: Alert good historian HEENT: Pupils equal round and reactive or mucosa is moist neck is supple Cardio: S1-S2 regular rate and rhythm no murmurs appreciated. Respiratory: Patient has decreased breath sounds consistent through the left lung. With some rhonchorous sounds. Abdomen: Soft nontender no rebound or guarding no liver spleen enlargement no appreciable hernias Extremities: Full range of motion no edema Neurologic: Grossly intact. Objective Labs 07/21/23 09:34 07/21/23 09:34 Labs: Laboratory Results - last 24 hr 07/21/23 07/21/23 09:34 17:00 WBC 12.8 H RBC 3.84 L Hgb 11.0 L Hct 32.3 L MCV 84.2 MCH 28.6 MCHC 34.0 RDW 14.9 H Plt Count 577 H Neut % (Auto) 84.2 H Lymph % (Auto) 7.5 L [place] % (Auto) 7.3 Eos % (Auto) 0.6 L Baso % (Auto) 0.4 Neut # (Auto) 54907 H Lymph # (Auto) 1000 L [place] # (Auto) 900 Eos # (Auto) 100 Baso # (Auto) 0 Sodium 128 L Potassium 4.0 Chloride 96 L Carbon Dioxide 25 BUN 7 L Creatinine 0.33 L Estimated GFR > 60 BUN/Creatinine Ratio 21.2 Glucose 148 H Calcium 7.7 L Total Bilirubin 0.3 AST 59 ALT 76 H Alkaline Phosphatase 64 Total Protein 5.0 L Albumin 2.1 L Globulin 2.9 Albumin/Globulin Ratio 0.7 L Vancomycin Trough 7.1 L [facility] Medical History (Updated 07/19/23 @ 18:25 by Cecille Funez MD) Substance abuse Excessive drinking alcohol Shortness of breath Sinus drainage Chronic cough Hypertension Marijuana smoker Current every day smoker Paranoid schizophrenia Surgical History H/O rhinoplasty History of dental surgery Social History household members: friend(s) Smoking Status: Former smoker alcohol intake: former Assessment & Plan Assessment and plan (1) Pleural effusion: Status: Acute Plan Empyema with pleural effusion. Patient with elevated white blood cell count. G stain from fluid showed no bacteria culture is pending. Improved with Zosyn and vancomycin. We will continue with IV antibiotics. Repeat chest x-ray this morning. Minimal improvement of pleural effusion with thoracentesis. In discussion with General surgery because of possible loculation of meeting a chest tube. Obtain PT INR today continue with DVT dose prophylaxis. Continue with monitoring white blood cell count and IV antibiotics. Defer to surgery if needed for chest tube placement. Pneumonia. Covering Gram-positive there was and g negatives and MRSA. Cultures are pending at this point. Monitor white blood cell count continue with IV antibiotics Acute respiratory failure. Patient quite hypoxic. Improved aeration. Currently not on oxygen at this point. Hyponatremia. Has on normal saline. Will decrease this down check sodium tomorrow and electrolytes. Malnutrition severe. Protein calorie. Nutrition consult available for discussion in regards to management of best caloric intake. Alcohol misuse. No signs of significant withdrawal. COPD Smoker with longstanding history of 100+ pack years. He is made the decision to stop smoking. Will continue to fall. Schizophrenia. Patient on home medication mental status is stable. Disposition and plan. Patient improved a little from the standpoint of his lungs. White blood cell count improving with IV antibiotics. Continue with ongoing treatment. Questionable chest tube placement by General surgery for loculated pleural effusion. Quality VTE Deep Vein Thrombosis/Pulmonary Embolism Present on Admission: No
[2023-07-22 07:44] LABS: Add Manual Diff / Slide Review NO; Basophils Absolute Auto 100 /uL (0-100); Basophils Percent Auto 0.5 % (0-2); Eosinophils Absolute Auto 200 /uL (0-450); Eosinophils Percent Auto 1.5 % (2-4); Hematocrit 31.2 % (41-53); Hemoglobin 10.5 g/dL (13.5-17.5); Lymphocytes Absolute Auto 1000 /uL (1100-4500); Lymphocytes Percent Auto 9.3 % (25-40); Mean Corpuscular HGB Conc 33.6 % (30-36); Mean Corpuscular Hemoglobin 28.3 PG (26-34); Mean Corpuscular Volume 84.5 fL (80-100); Monocytes Absolute Auto 1300 /uL (0-900); Monocytes Percent Auto 11.8 % (3-14); Neutrophils Absolute Auto 8600 /uL (1500-7000); Neutrophils Percent Auto 76.9 % (50-75); Platelet Count 646 X10^3/uL (150-400); Red Cell Distribution Width 14.9 % (11.6-14.8); White Blood Cell Count 11.2 X10^3/uL (4.5-11.0)
[2023-07-22 07:50] LABS: INR 1.6 (0.9-1.3); Prothrombin Time 18.6 SECONDS (9.4-12.5)
[2023-07-22 07:54] LABS: Alanine Aminotransferase 59 IU/L (<50); Albumin 2.2 g/dL (3.5-5.0); Albumin Globulin Ratio 0.6 (1.0-2.8); Alkaline Phosphatase 53 U/L (38-126); Aspartate Aminotransferase 27 IU/L (17-59); Bilirubin Total 0.4 mg/dL (0.2-1.3); Blood Urea Nitrogen 7 mg/dL (9-20); Carbon Dioxide 26 mmol/L (22-32); Chloride 98 mmol/L (98-107); Estimated Glomerular Filt Rate > 60 mL/min (>60); Globulin 3.4 g/dL (1.7-4.1); Glucose 109 mg/dL (70-100); HEMOLYSIS < 15 (0-50); Potassium 3.6 mmol/L (3.4-5.1); Sodium 129 mmol/L (137-145); Total Protein 5.6 g/dL (6.3-8.2)
--- NOTE | 2023-07-22 08:42 | DI.CT.S_ITS ---
PROCEDURE: CT CHEST WO CON INDICATIONS: effusion left side TECHNIQUE: Noncontrast 5 mm thick sections acquired from the pulmonary apices to the posterior costophrenic angles. 1 mm lung window, 5 mm thick coronal and sagittal and 7 mm axial MIP reformats were then acquired. For radiation dose reduction, the following was used: automated exposure control, adjustment of mA and/or kV according to patient size. COMPARISON: None. FINDINGS: Image quality: Excellent. Lungs and pleura: Massive left-sided effusion, which is loculated and demonstrates pleural thickening. There is near complete atelectasis of the entire left lung. Tree-in-bud and centrilobular nodules in the anterior right upper lobe. Moderate centrilobular emphysema. Trace air within the fusion. Small layering right pleural effusion. Mediastinum: Heart size is normal. No pericardial effusion. No mediastinal adenopathy by size criteria. Thoracic aorta and central pulmonary arteries are normal in size. Esophagus is normal in caliber. No hiatal hernia. Bones and chest wall: No suspicious bony lesions. No vertebral body compression fractures. No axillary or supraclavicular adenopathy by size criteria. No thyroid nodules which require sonographic follow up, per consensus guidelines. Upper Abdomen: Visualized upper abdominal solid organs and bowel loops appear normal in the absence of contrast. IMPRESSION: Massive , loculated left-sided pleural effusion, with near complete atelectasis of the left lung. Trace gas within the effusion, presumably iatrogenic from recent thoracentesis. Superimposed infectious or inflammatory bronchiolitis within the anterior right upper lobe. Trace right pleural effusion. Dictated by: Jose Vasquez M.D. on 07/22/2023 at 10:20 Approved by: Jose Vasquez M.D. on 07/22/2023 at 10:24
[2023-07-22] MEDS: LORazepam 1 MG TABLET PO ×2 (08:55→23:06)
[2023-07-22] MEDS: ENOXAPARIN 40 MG/0.4 ML SYRINGE SUBCUT (08:55)
[2023-07-22] MEDS: MULTIVITAMIN 1 TABLET 1 TAB PO (08:56)
[2023-07-22] MEDS: THIAMINE 100 MG TABLET PO (08:56)
[2023-07-22] MEDS: FOLIC ACID 1 MG TABLET PO (08:56)
[2023-07-22] MEDS: ALBUTEROL 2.5 MG/3 ML NEB (ADULT) INH ×4 (09:18→23:12)
--- NOTE | 2023-07-22 10:13 | CM.DPC ---
DCP Cont. Reviewed EMR and team rounds for status updates. Plan is for pt to continue IV ABO's, surgery is being consulted for possible chest tube placement for localized plueral effusion. He remains hypoxic on room air, but is not yet on O2. Continue to monitor, d/c likely after the weekend, pending continued improvement and need for O2.
[2023-07-22] MEDS: LIDOCAINE 1% 20 ML 40 ML INJ (10:53)
[2023-07-22] MEDS: fentaNYL 100 MCG/2 ML INJ 50 MCG IV (10:53)
--- NOTE | 2023-07-22 11:38 | DI.RAD.S_ITS ---
PROCEDURE: XR CHEST 1V INDICATIONS: chest tube TECHNIQUE: One view of the chest was acquired. COMPARISON: [facility], CR, XR CHEST 1V, 07/20/2023, 15:29. [facility], CR, XR CHEST 1V, 07/19/2023, 20:39. FINDINGS: Surgical changes and devices: Interval placement of a left-sided chest tube. Lungs and pleura: Significant interval decrease in size of the large left pleural effusion. New gas within the pleural collection. Mediastinum: Mediastinal contours appear normal. Heart size is normal. Bones and chest wall: No suspicious bony lesions. Overlying soft tissues appear unremarkable. IMPRESSION: Interval placement a left-sided chest tube. Decreased size of the pleural effusion, which now contains gas. Gas is presumably iatrogenic. Dictated by: Jose Vasquez M.D. on 07/22/2023 at 10:59 Approved by: Jose Vasquez M.D. on 07/22/2023 at 11:01
--- NOTE | 2023-07-22 11:53 | PM.CN ---
History of Present Illness Consult details Date Patient Seen: 07/22/23 Time Patient Seen: 11:54 Chief complaint: quite smoking last mon-cant breathetemphardtostand Narrative: 57-year-old man with heavy tobacco use history admitted with a large left pleural effusion. Interventional Radiology performed thoracentesis July 19 with removal of 1100 cc. Over the past several days left pleural effusion has reaccumulated CT chest today demonstrates loculated left pleural effusion with near complete atelectasis of the left lung. Consulted for chest tube placement. Meds Home Medications and Allergies Home Medications Medication Instructions Recorded Confirmed Type acetaminophen 325 mg capsule 650 mg (2 x 325 mg) PO QID PRN 01/18/23 07/19/23 Rx (Tylenol) pain #60 caps ibuprofen 200 mg tablet 400 mg (2 x 200 mg) PO Q6H #60 tabs 01/18/23 07/19/23 Rx aripiprazole 2 mg tablet 2 mg PO DAILY 07/19/23 07/19/23 History Allergies Allergy/AdvReac Type Severity Reaction Status Date / Time codeine [CODEINE] Allergy Unknown Verified 07/19/23 16:05 Exam Vital Signs (past 8 hours): - 07/22/23 07:00 07/22/23 09:18 Temperature 98.5 F Pulse Rate 94 H 99 H Respiratory Rate 20 22 Blood Pressure 101/70 Pulse Oximetry 94 94 Oxygen Delivery Method Room Air Oxygen Flow Rate 0 Oxygen Delivery Method Room Air Oxygen Flow Rate 0 Narrative Exam Narrative: General cachectic male alert oriented no distress Chest mildly labored respirations no left-sided breath sounds. Abdomen soft nontender nondistended Extremities warm well perfused Objective Labs 07/22/23 07:35 07/22/23 07:35 Labs: Laboratory Results - last 24 hr 07/20/23 07/20/23 07/20/23 15:30 15:30 15:30 WBC RBC Hgb Hct MCV MCH MCHC RDW Plt Count Neut % (Auto) Lymph % (Auto) Mathews % (Auto) Eos % (Auto) Baso % (Auto) Neut # (Auto) Lymph # (Auto) Mathews # (Auto) Eos # (Auto) Baso # (Auto) PT INR Sodium Potassium Chloride Carbon Dioxide BUN Creatinine Estimated GFR BUN/Creatinine Ratio Glucose Calcium Total Bilirubin AST ALT Alkaline Phosphatase Total Protein Albumin Globulin Albumin/Globulin Ratio Vancomycin Trough Ref Test (Refrig) Comment Comment Comment 07/20/23 07/21/23 07/22/23 15:53 17:00 07:35 WBC 11.2 H RBC 3.70 L Hgb 10.5 L Hct 31.2 L MCV 84.5 MCH 28.3 MCHC 33.6 RDW 14.9 H Plt Count 646 H Neut % (Auto) 76.9 H Lymph % (Auto) 9.3 L Mathews % (Auto) 11.8 Eos % (Auto) 1.5 L Baso % (Auto) 0.5 Neut # (Auto) 8600 H Lymph # (Auto) 1000 L Mathews # (Auto) 1300 H Eos # (Auto) 200 Baso # (Auto) 100 PT 18.6 H INR 1.6 H Sodium 129 L Potassium 3.6 Chloride 98 Carbon Dioxide 26 BUN 7 L Creatinine 0.28 L Estimated GFR > 60 BUN/Creatinine Ratio 25.0 H Glucose 109 H Calcium 8.0 L Total Bilirubin 0.4 AST 27 ALT 59 H Alkaline Phosphatase 53 Total Protein 5.6 L Albumin 2.2 L Globulin 3.4 Albumin/Globulin Ratio 0.6 L Vancomycin Trough 7.1 L Ref Test (Refrig) Comment [facility] Medical History Substance abuse Excessive drinking alcohol Shortness of breath Sinus drainage Chronic cough Hypertension Marijuana smoker Current every day smoker Paranoid schizophrenia Surgical History H/O rhinoplasty History of dental surgery Social History household members: friend(s) Tobacco & Substance Use Smoking Status: Former smoker alcohol intake: former Assessment & Plan Assessment and plan (1) Pleural effusion: Status: Acute Assessment & Plan narrative: 57-year-old man with a massive left pleural effusion with loculations. -20 Wolof chest tube placed today with greater than 2 L of spontaneous purulent malodorous output. -Continue chest tube to suction at -20 mm of water pressure. -Abx -Will follow drainage over the next 24-48 hrs. If failure to clinically improve intra pleural TPA vs VATS
[2023-07-22 12:55] LABS: Vancomycin Trough 11.7 ug/mL (10-20)
[2023-07-22] MEDS: VANCOMYCIN TROUGH 1 REQUEST MISC (13:02)
[2023-07-22 15:39] LABS: Vancomycin Peak 10.4 ug/mL (20-40)
[2023-07-22] MEDS: VANCOMYCIN PEAK 1 REQUEST MISC (16:22)
[2023-07-22] MEDS: ACETAMINOPHEN 325 MG TABLET 650 MG PO ×2 (16:23→23:06)
[2023-07-22] MEDS: VANCOMYCIN 1,250 MG/250 ML PIGGYBACK 250 MG IV (18:30)
[2023-07-23] VITALS (10 sets, daily range): BP systolic 92–101; BP diastolic 56–66; PULSE 87–94; RESP 16–18; TEMP 36.3–37; O2SAT 94–96
[2023-07-23] MEDS: VANCOMYCIN 1,250 MG/250 ML PIGGYBACK 250 MG IV ×4 (01:55→19:07)
[2023-07-23] MEDS: PIPERACILLIN/TAZO 3.375 GM in SODIUM CHLORIDE 0.9% 100 ML IV ×3 (04:45→21:00)
[2023-07-23] MEDS: ALBUTEROL 2.5 MG/3 ML NEB (ADULT) INH ×4 (07:46→19:37)
--- NOTE | 2023-07-23 08:00 | DI.RAD.S_ITS ---
PROCEDURE: XR CHEST 1V INDICATIONS: f/u pleural effusion TECHNIQUE: One view of the chest was acquired. COMPARISON: [facility], CR, XR CHEST 1V, 07/22/2023, 11:39. FINDINGS: Surgical changes and devices: Left chest tube in place, as before Lungs and pleura: Continued left pleural effusion with air present, within the fluid, as well. Left basilar atelectasis and left-sided infiltrate. Right lung is grossly clear. Mediastinum: Mediastinal contours appear normal. Heart size is normal. Bones and chest wall: No suspicious bony lesions. Overlying soft tissues appear unremarkable. IMPRESSION: 1. Left chest tube in place with fluid and air in the left pleural space. 2. Left basilar atelectasis at the left sided infiltrate. Dictated by: Elijah Paula M.D. on 07/23/2023 at 8:42 Approved by: Elijah Paula M.D. on 07/23/2023 at 8:43
[2023-07-23] MEDS: ENOXAPARIN 40 MG/0.4 ML SYRINGE SUBCUT (09:57)
[2023-07-23] MEDS: ACETAMINOPHEN 325 MG TABLET 650 MG PO ×2 (09:58→18:54)
[2023-07-23] MEDS: FOLIC ACID 1 MG TABLET PO (10:16)
[2023-07-23] MEDS: THIAMINE 100 MG TABLET PO (10:17)
[2023-07-23] MEDS: MULTIVITAMIN 1 TABLET 1 TAB PO (10:17)
--- NOTE | 2023-07-23 10:56 | PC.NURSE ---
pt up to bathroom with sba, steady and tolerated well. chest tube to 20cm wall suction in place with thick white fluid, medicated with tylenol for c/o of discomfort at insertion site to left chest-clamps at bs ra 95% no sob noted.
--- NOTE | 2023-07-23 11:14 | PM.PN.1 ---
Subjective Subjective Date Patient Seen: 07/23/23 Time Patient Seen: 11:14 Interval history: Chest tube placed yesterday with 2.5 L of purulent drainage over 24 hours. Breathing feels easier. Not requiring supplemental oxygen Exam Vital Signs (past 8 hours): - 07/23/23 06:00 07/23/23 07:46 07/23/23 08:12 Temperature 98.4 F Pulse Rate 94 H 91 H Respiratory Rate 17 18 Blood Pressure 92/56 L Pulse Oximetry 95 95 Oxygen Delivery Method Room Air Room Air Oxygen Flow Rate 0 0 Fraction of Inspired Oxygen 21 07/23/23 08:55 Temperature 97.3 F L Pulse Rate 90 Respiratory Rate 16 Blood Pressure 92/57 L Pulse Oximetry 95 Oxygen Delivery Method Oxygen Flow Rate Fraction of Inspired Oxygen Fraction of Inspired Oxygen 21 SaO2/FiO2 Ratio 452 Oxygen Delivery Method Room Air Oxygen Flow Rate 0 Narrative Exam Narrative: General adult man alert oriented no acute distress Chest nonlabored respiration. Left chest tube to suction with purulent drainage. Objective Labs 07/22/23 07:35 07/22/23 07:35 Labs: Laboratory Results - last 24 hr 07/20/23 07/22/23 07/22/23 15:31 12:15 15:05 Fluid Color Yellow Fluid Appearance Turbid Fluid RBC 0 Fld Tot Nucleated Cell [id number] Fluid Polynuclear WBCs 40 Fluid Mononuclear WBCs 60 Body Fluid Clot No clots present Vancomycin Peak 10.4 L Vancomycin Trough 11.7 PFSH Medical History Substance abuse Excessive drinking alcohol Shortness of breath Sinus drainage Chronic cough Hypertension Marijuana smoker Current every day smoker Paranoid schizophrenia Surgical History H/O rhinoplasty History of dental surgery Social History household members: friend(s) Smoking Status: Former smoker alcohol intake: former Assessment & Plan Assessment and plan (1) Pleural effusion: Status: Acute Assessment & Plan narrative: 57-year-old man with a left pleural effusion improving with antibiotic therapy and chest tube. Today's chest x-ray reviewed demonstrates some remaining pleural effusion however significantly improved over the past 24 hours with the placement of chest tube. Respiratory status stable. Continue chest tube to drainage no need for intrapleural tPA at this time as he is improving. Quality VTE Deep Vein Thrombosis/Pulmonary Embolism Present on Admission: No
--- NOTE | 2023-07-23 13:03 | PM.PN.1 ---
Subjective Subjective Date Patient Seen: 07/23/23 Time Patient Seen: 13:03 Interval history: Patient seen and evaluated. Says things went well last night. A little discomfort when sleep being taking Tylenol for pain because of the chest tube. Good amount of drainage today. He says he is breathing much better. No fevers. Says he is eating okay. He has a little bit of loose stools. Exam Vital Signs (past 8 hours): - 07/23/23 06:00 07/23/23 07:46 07/23/23 08:12 Temperature 98.4 F Pulse Rate 94 H 91 H Respiratory Rate 17 18 Blood Pressure 92/56 L Pulse Oximetry 95 95 Oxygen Delivery Method Room Air Room Air Oxygen Flow Rate 0 0 Fraction of Inspired Oxygen 21 07/23/23 08:55 07/23/23 11:15 Temperature 97.3 F L Pulse Rate 90 88 Respiratory Rate 16 18 Blood Pressure 92/57 L Pulse Oximetry 95 95 Oxygen Delivery Method Room Air Oxygen Flow Rate 0 Fraction of Inspired Oxygen 21 Fraction of Inspired Oxygen 21 SaO2/FiO2 Ratio 452 Oxygen Delivery Method Room Air Oxygen Flow Rate 0 Narrative Exam Narrative: Gen.: Alert good historian HEENT: Pupils equal round and reactive or mucosa is moist Cardio: S1-S2 regular rate and rhythm Respiratory: Lungs good aeration bilaterally. Breath sounds improved on left side Abdomen: Soft nontender no rebound or guarding Extremities: Warm dry perfused Objective Labs 07/22/23 07:35 07/22/23 07:35 Labs: Laboratory Results - last 24 hr 07/20/23 07/22/23 15:31 15:05 Fluid Color Yellow Fluid Appearance Turbid Fluid RBC 0 Fld Tot Nucleated Cell [id number] Fluid Polynuclear WBCs 40 Fluid Mononuclear WBCs 60 Body Fluid Clot No clots present Vancomycin Peak 10.4 L PFSH Medical History Substance abuse Excessive drinking alcohol Shortness of breath Sinus drainage Chronic cough Hypertension Marijuana smoker Current every day smoker Paranoid schizophrenia Surgical History H/O rhinoplasty History of dental surgery Social History household members: friend(s) Smoking Status: Former smoker alcohol intake: former Assessment & Plan Assessment and plan (1) Empyema: Status: Acute Plan Empyema patient with left-sided pleural effusion long time standing smoking history. With left-sided pleural effusion. Thoracentesis initial removal of fluid which reaccumulated concerning about loculation. General surgery placed chest tube yesterday. Had parent drainage and output. Patient says he is breathing easier. Chest tube in place minimal pain. Continue with IV vancomycin and Zosyn. Repeat blood count and laboratory tests tomorrow. Chest x-ray was reviewed. Shows improvement. Continue to be monitored by surgery chest tube. Continue IV antibiotics. Acute respiratory failure. Patient quite hypoxic. Improved aeration at this point. Not requiring oxygen since decompression. Hyponatremia.. Patient's sodium is improving. Will stop IV fluid. Encourage adequate nutrition. Malnutrition severe protein calorie malnutrition acute. Nutritional consultation. Dietary recommendations for food implant. Alcohol misuse disorder. No signs of withdrawal. COPD without acute exacerbation long-time smoking history. Schizophrenia. Patient is stable on current medication. Quality VTE Deep Vein Thrombosis/Pulmonary Embolism Present on Admission: No
[2023-07-23 13:07] LABS: Vancomycin Trough 13.4 ug/mL (10-20)
--- NOTE | 2023-07-23 13:48 | CM.DPC ---
DCP Cont: Per MD, Surgeon was able to successfully place chest tube yesterday 07/22 and pt has had good fluid output and breathing better. Pt continues on IV abx and monitoring and not yet medically stable to discharge but making progress. Per RN, pt has been up to BR with SBA and steady gait today, pain of chest tube seems managed with tylenol at this time. Plan: SW to follow in the AM for possible chest tube removal and to confirm pt has safe plan of d/c home and possible [employer] consult for malnutrition and r/o HH. Miriam Mendez, ANESTHESIA ASSOCIATE
[2023-07-23 17:09] LABS: Vancomycin Peak 27.6 ug/mL (20-40)
[2023-07-23] MEDS: MAG HYDROX/ALUM/SIMETH 30 ML UDC PO (23:23)
[2023-07-24] VITALS (8 sets, daily range): BP systolic 96–110; BP diastolic 59–73; PULSE 84–106; RESP 16–19; TEMP 36.5–37.3; O2SAT 94–97
[2023-07-24] MEDS: VANCOMYCIN 1,250 MG/250 ML PIGGYBACK 250 MG IV ×4 (00:14→18:51)
[2023-07-24] MEDS: LORazepam 1 MG TABLET PO ×2 (00:38→17:14)
[2023-07-24] MEDS: ACETAMINOPHEN 325 MG TABLET 650 MG PO ×3 (00:39→17:14)
[2023-07-24] MEDS: ONDANSETRON 4 MG/2 ML INJ IV (01:14)
[2023-07-24] MEDS: PIPERACILLIN/TAZO 3.375 GM in SODIUM CHLORIDE 0.9% 100 ML IV ×3 (04:14→20:52)
[2023-07-24 06:28] LABS: Add Manual Diff / Slide Review NO; Basophils Absolute Auto 0 /uL (0-100); Basophils Percent Auto 0.4 % (0-2); Eosinophils Absolute Auto 400 /uL (0-450); Eosinophils Percent Auto 5.2 % (2-4); Hematocrit 30.1 % (41-53); Hemoglobin 10.3 g/dL (13.5-17.5); Lymphocytes Absolute Auto 1400 /uL (1100-4500); Lymphocytes Percent Auto 18.3 % (25-40); Mean Corpuscular Hemoglobin 28.3 PG (26-34); Mean Corpuscular Volume 83.2 fL (80-100); Monocytes Absolute Auto 900 /uL (0-900); Neutrophils Absolute Auto 5100 /uL (1500-7000); Neutrophils Percent Auto 65.1 % (50-75); Platelet Count 698 X10^3/uL (150-400); Red Blood Cell Count 3.62 X10^6/uL (4.5-5.9); Red Cell Distribution Width 15.3 % (11.6-14.8); White Blood Cell Count 7.9 X10^3/uL (4.5-11.0)
[2023-07-24 06:31] LABS: INR 1.4 (0.9-1.3); Prothrombin Time 15.7 SECONDS (9.4-12.5)
[2023-07-24 06:39] LABS: Alanine Aminotransferase 42 IU/L (<50); Albumin 2.2 g/dL (3.5-5.0); Albumin Globulin Ratio 0.7 (1.0-2.8); Alkaline Phosphatase 65 U/L (38-126); Aspartate Aminotransferase 30 IU/L (17-59); BUN Creatinine Ratio 34.6 (6-22); Bilirubin Total 0.3 mg/dL (0.2-1.3); Blood Urea Nitrogen 9 mg/dL (9-20); Calcium 8.2 mg/dL (8.4-10.2); Carbon Dioxide 28 mmol/L (22-32); Chloride 99 mmol/L (98-107); Estimated Glomerular Filt Rate > 60 mL/min (>60); Globulin 3.2 g/dL (1.7-4.1); Glucose 118 mg/dL (70-100); HEMOLYSIS < 15 (0-50); Sodium 128 mmol/L (137-145); Total Protein 5.4 g/dL (6.3-8.2)
[2023-07-24] MEDS: ALBUTEROL 2.5 MG/3 ML NEB (ADULT) INH ×5 (07:40→22:25)
[2023-07-24] MEDS: FOLIC ACID 1 MG TABLET PO (08:18)
[2023-07-24] MEDS: ENOXAPARIN 40 MG/0.4 ML SYRINGE SUBCUT (08:18)
[2023-07-24] MEDS: MULTIVITAMIN 1 TABLET 1 TAB PO (08:18)
--- NOTE | 2023-07-24 08:33 | P.PN_ITS ---
Subjective Subjective Date Patient Seen: 07/24/23 Time Patient Seen: 08:33 Interval history: Patient seen in follow-up of empyema. Respiratory failure. Hyponatremia. Overall feeling well. Did not sleep well last night. Using melatonin. Only got a couple hours but is feeling better today. No changes or complaints. Chest tube is continuing to drain. 90 cc of very thick whitish discharge. Slowing down. No other change. Exam Vital Signs (past 8 hours): - 07/24/23 04:00 Temperature 98.5 F Pulse Rate 93 H Respiratory Rate 16 Blood Pressure 100/63 Pulse Oximetry 95 Oxygen Flow Rate 0 Fraction of Inspired Oxygen 21 SaO2/FiO2 Ratio 447 Oxygen Delivery Method Room Air Oxygen Flow Rate 0 Narrative Exam Narrative: Alert smiling male in no acute respiratory distress cachectic in appearance HEENT exam is unremarkable. Neck supple without adenopathy JVD or bruits lungs with improved breath sounds left base. Otherwise clear. Heart is regular rate and rhythm. Abdomen is soft positive bowel sounds nontender. Extremities nonedematous Objective Labs 07/24/23 06:07 07/24/23 06:07 Labs: Laboratory Results - last 24 hr 07/20/23 07/23/23 07/23/23 15:31 12:35 16:38 WBC RBC Hgb Hct MCV MCH MCHC RDW Plt Count Neut % (Auto) Lymph % (Auto) [place] % (Auto) Eos % (Auto) Baso % (Auto) Neut # (Auto) Lymph # (Auto) [place] # (Auto) Eos # (Auto) Baso # (Auto) PT INR Sodium Potassium Chloride Carbon Dioxide BUN Creatinine Estimated GFR BUN/Creatinine Ratio Glucose Calcium Total Bilirubin AST ALT Alkaline Phosphatase Total Protein Albumin Globulin Albumin/Globulin Ratio Fluid Color Yellow Fluid Appearance Turbid Fluid RBC 0 Fld Tot Nucleated Cell 802089 Fluid Polynuclear WBCs 40 Fluid Mononuclear WBCs 60 Body Fluid Clot No clots present Vancomycin Peak 27.6 Vancomycin Trough 13.4 07/24/23 06:07 WBC 7.9 RBC 3.62 L Hgb 10.3 L Hct 30.1 L MCV 83.2 MCH 28.3 MCHC 34.0 RDW 15.3 H Plt Count 698 H Neut % (Auto) 65.1 Lymph % (Auto) 18.3 L [place] % (Auto) 11.0 Eos % (Auto) 5.2 H Baso % (Auto) 0.4 Neut # (Auto) 5100 Lymph # (Auto) 1400 [place] # (Auto) 900 Eos # (Auto) 400 Baso # (Auto) 0 PT 15.7 H INR 1.4 H Sodium 128 L Potassium 4.0 Chloride 99 Carbon Dioxide 28 BUN 9 Creatinine 0.26 L Estimated GFR > 60 BUN/Creatinine Ratio 34.6 H Glucose 118 H Calcium 8.2 L Total Bilirubin 0.3 AST 30 ALT 42 Alkaline Phosphatase 65 Total Protein 5.4 L Albumin 2.2 L Globulin 3.2 Albumin/Globulin Ratio 0.7 L Fluid Color Fluid Appearance Fluid RBC Fld Tot Nucleated Cell Fluid Polynuclear WBCs Fluid Mononuclear WBCs Body Fluid Clot Vancomycin Peak Vancomycin Trough PFSH Medical History Substance abuse Excessive drinking alcohol Shortness of breath Sinus drainage Chronic cough Hypertension Marijuana smoker Current every day smoker Paranoid schizophrenia Surgical History H/O rhinoplasty History of dental surgery Social History household members: friend(s) Smoking Status: Former smoker alcohol intake: former Assessment & Plan Assessment & Plan narrative: Left-sided empyema. Clinically improving. Apparently there is less drainage from chest tube. Appreciate surgeon's input. Culture appears to be Gram- positive but identification and sensitivities are pending yet. Will continue current antibiotics. Seem to be working as far as decreased white count decreased fever curve and clinically better. Certainly breathing easier. No pain with chest tube at this time. We discussed this. At this point will continue antibiotics. Until we know what we are dealing with. We will see what surgeons feel about the chest tube. Continue antibiotics. Repeat labs tomorrow. Acute respiratory failure. Resolved. Patient seems to be doing quite well at this point no requirement for oxygen. Expect secondary to pneumonia and empyema. Possible cancer. Awaiting pathology. Appears more likely this is infective at this time. Will have to follow closely. Hyponatremia. Resolved. Off fluids. Will see how it goes. Malnutrition. Severe protein calorie malnutrition acute. Nutritional consult. Alcohol misuse disorder. Appears to be stable at this time. No withdrawal. No worries at this time. COPD. Doing well. Breathing comfortably no treatment change. Schizophrenia. Stable on current medicine will continue. Code status. DNR. Intubation if needed during this hospitalization okay DVT prophylaxis on treatment. Disposition. Doing well. Suspect will be here a few more days probably towards end of the week will have to see. We await chest tube decision by surgeons. And will proceed from there. 50 minutes spent reviewing chart discussing with doctors nurses. Dictation. Orders. Quality VTE Deep Vein Thrombosis/Pulmonary Embolism Present on Admission: No
--- NOTE | 2023-07-24 11:12 | CM.DPC ---
DCP Cont: Per MD, pt still has chest tube with ongoing drainage and continues with IV-Abx as pt's cultures Gram+ and awaiting sensitivities, pt likely here another 2-3 days pending progress. SW met bedside with pt and explained role and he confirms he is aware that likely he will not d/c for another couple days and he continues to be unsure if he feels he will have any discharge planning needs and he is uncertain if he is agreeable with HH referral yet. Pt agreeable with SW checking with him closer to discharge to determine if he has any discharge needs. Plan: SW to follow closely for eventual chest tube removal and sensitivities to return for plan of discharge home and to continue to follow to r/o any HH needs. PRIMO Kang
--- NOTE | 2023-07-24 13:00 | DI.CT.S_ITS ---
PROCEDURE: CT CHEST WO CON INDICATIONS: pleural effusion TECHNIQUE: Noncontrast 5 mm thick sections acquired from the pulmonary apices to the posterior costophrenic angles. 1 mm lung window, 5 mm thick coronal and sagittal and 7 mm axial MIP reformats were then acquired. For radiation dose reduction, the following was used: automated exposure control, adjustment of mA and/or kV according to patient size. COMPARISON: [facility], CR, XR CHEST 1V, 07/23/2023, 7:30. [facility], CR, XR CHEST 1V, 07/22/2023, 11:39. [facility], CT, CT CHEST WO CON, 07/22/2023, 9:40. FINDINGS: Image quality: Diagnostic. Lungs and pleura: Moderate emphysematous change. Reticular thickening and scattered ground-glass opacity. Consolidative opacity at the left lower lobe. Left lower lobe volume loss. Trace secretions in the trachea. Secretions in the left lower lobe bronchus. Small left pleural effusion. There is gas within the pleural effusion. There is a chest tube within the pleural effusion at the superior aspect. The chest tube enters at the 4-5th rib space. A small loculated appearing pleural collection at the left upper thorax, (2/21). Overall the pleural effusion is substantially decreased in size compared to CT 07/22/2023. Trace right pleural effusion. Mediastinum: Heart size is normal. Small pericardial effusion. Shotty mediastinal lymph nodes. Thoracic aorta and central pulmonary arteries are normal in size. Esophagus is normal in caliber. No hiatal hernia. Bones and chest wall: No suspicious bony lesions. No vertebral body compression fractures. No axillary or supraclavicular adenopathy by size criteria. No thyroid nodules which require sonographic follow up, per consensus guidelines. Upper Abdomen: Visualized upper abdominal solid organs and bowel loops appear normal in the absence of contrast. IMPRESSION: 1. Small left pleural effusion is substantially decreased. Chest tube within the collection. Small amount of gas within the pleural collection. 2. Trace right pleural effusion. Trace pericardial effusion. 3. Shotty mediastinal lymph nodes which are felt to be reactive in nature. Dictated by: Jack Pack M.D. on 07/24/2023 at 13:36 Approved by: Jack Pack M.D. on 07/24/2023 at 13:45
--- NOTE | 2023-07-24 13:03 | PM.PN.1 ---
Subjective Subjective Date Patient Seen: 07/24/23 Time Patient Seen: 13:03 Interval history: Breathing has been easier since the chest tube was placed. Output has decreased significantly but is quite thick. Exam Vital Signs (past 8 hours): - 07/24/23 08:00 07/24/23 08:18 07/24/23 12:00 Temperature 99.2 F Pulse Rate 89 Respiratory Rate 18 18 Blood Pressure 105/65 Pulse Oximetry 95 Oxygen Delivery Method Room Air Oxygen Flow Rate 0 Fraction of Inspired Oxygen 21 SaO2/FiO2 Ratio 447 Oxygen Delivery Method Room Air Oxygen Flow Rate 0 Narrative Exam Narrative: No obvious air leak in the water seal chamber Objective Labs 07/24/23 06:07 07/24/23 06:07 Labs: Laboratory Results - last 24 hr 07/23/23 07/23/23 07/24/23 12:35 16:38 06:07 WBC 7.9 RBC 3.62 L Hgb 10.3 L Hct 30.1 L MCV 83.2 MCH 28.3 MCHC 34.0 RDW 15.3 H Plt Count 698 H Neut % (Auto) 65.1 Lymph % (Auto) 18.3 L [place] % (Auto) 11.0 Eos % (Auto) 5.2 H Baso % (Auto) 0.4 Neut # (Auto) 5100 Lymph # (Auto) 1400 [place] # (Auto) 900 Eos # (Auto) 400 Baso # (Auto) 0 PT 15.7 H INR 1.4 H Sodium 128 L Potassium 4.0 Chloride 99 Carbon Dioxide 28 BUN 9 Creatinine 0.26 L Estimated GFR > 60 BUN/Creatinine Ratio 34.6 H Glucose 118 H Calcium 8.2 L Total Bilirubin 0.3 AST 30 ALT 42 Alkaline Phosphatase 65 Total Protein 5.4 L Albumin 2.2 L Globulin 3.2 Albumin/Globulin Ratio 0.7 L Vancomycin Peak 27.6 Vancomycin Trough 13.4 PFSH Medical History Substance abuse Excessive drinking alcohol Shortness of breath Sinus drainage Chronic cough Hypertension Marijuana smoker Current every day smoker Paranoid schizophrenia Surgical History H/O rhinoplasty History of dental surgery Social History household members: friend(s) Smoking Status: Former smoker alcohol intake: former Assessment & Plan Assessment and plan (1) Empyema: Status: Acute Plan Recommend repeat CT of the chest to determine if there are continued loculations. If there are I recommend transfer for a VATS decortication versus thoracotomy. Quality VTE Deep Vein Thrombosis/Pulmonary Embolism Present on Admission: No
[2023-07-25] VITALS (9 sets, daily range): BP systolic 98–118; BP diastolic 61–86; PULSE 80–100; RESP 16–18; TEMP 36.2–37.3; O2SAT 95–96
[2023-07-25] MEDS: VANCOMYCIN 1,250 MG/250 ML PIGGYBACK 250 MG IV ×4 (00:40→18:47)
[2023-07-25] MEDS: ACETAMINOPHEN 325 MG TABLET 650 MG PO ×3 (01:20→13:38)
[2023-07-25] MEDS: PIPERACILLIN/TAZO 3.375 GM in SODIUM CHLORIDE 0.9% 100 ML IV ×3 (03:17→20:23)
[2023-07-25 04:28] LABS: Add Manual Diff / Slide Review NO; Basophils Absolute Auto 100 /uL (0-100); Basophils Percent Auto 1.4 % (0-2); Eosinophils Absolute Auto 500 /uL (0-450); Hematocrit 30.5 % (41-53); Hemoglobin 10.6 g/dL (13.5-17.5); Lymphocytes Absolute Auto 1800 /uL (1100-4500); Mean Corpuscular HGB Conc 34.9 % (30-36); Mean Corpuscular Hemoglobin 28.9 PG (26-34); Mean Corpuscular Volume 82.8 fL (80-100); Monocytes Absolute Auto 1000 /uL (0-900); Monocytes Percent Auto 10.9 % (3-14); Neutrophils Absolute Auto 5900 /uL (1500-7000); Neutrophils Percent Auto 63.7 % (50-75); Platelet Count 759 X10^3/uL (150-400); Red Blood Cell Count 3.68 X10^6/uL (4.5-5.9); Red Cell Distribution Width 15.5 % (11.6-14.8); White Blood Cell Count 9.3 X10^3/uL (4.5-11.0)
[2023-07-25 04:31] LABS: Alanine Aminotransferase 45 IU/L (<50); Albumin 2.6 g/dL (3.5-5.0); Albumin Globulin Ratio 0.7 (1.0-2.8); Alkaline Phosphatase 65 U/L (38-126); Aspartate Aminotransferase 39 IU/L (17-59); BUN Creatinine Ratio 33.3 (6-22); Bilirubin Total 0.3 mg/dL (0.2-1.3); Blood Urea Nitrogen 12 mg/dL (9-20); Calcium 8.5 mg/dL (8.4-10.2); Carbon Dioxide 27 mmol/L (22-32); Chloride 98 mmol/L (98-107); Estimated Glomerular Filt Rate > 60 mL/min (>60); Globulin 3.5 g/dL (1.7-4.1); Glucose 99 mg/dL (70-100); HEMOLYSIS 18 (0-50); Potassium 4.1 mmol/L (3.4-5.1); Sodium 130 mmol/L (137-145); Total Protein 6.1 g/dL (6.3-8.2)
[2023-07-25 05:01] LABS: RBC Morphology Normal Morphology
[2023-07-25] MEDS: ALBUTEROL 2.5 MG/3 ML NEB (ADULT) INH ×5 (07:06→22:05)
[2023-07-25] MEDS: MULTIVITAMIN 1 TABLET 1 TAB PO (08:15)
[2023-07-25] MEDS: ENOXAPARIN 40 MG/0.4 ML SYRINGE SUBCUT (08:15)
[2023-07-25] MEDS: FOLIC ACID 1 MG TABLET PO (08:15)
--- NOTE | 2023-07-25 08:35 | PM.PN.1 ---
Subjective Subjective Date Patient Seen: 07/25/23 Time Patient Seen: 08:36 Interval history: Patient seen in follow-up of empyema. No other changes. Feeling well. CT scan shows some improvement without other changes. Patient is having no chest pain. Breathing comfortably. Overall feeling well. Exam Vital Signs (past 8 hours): - 07/25/23 04:00 07/25/23 07:06 07/25/23 07:30 Temperature 97.7 F Pulse Rate 80 Respiratory Rate 16 Blood Pressure 112/66 Pulse Oximetry 96 95 Oxygen Delivery Method Room Air Room Air Oxygen Flow Rate 0 Fraction of Inspired Oxygen 21 SaO2/FiO2 Ratio 452 Oxygen Delivery Method Room Air Oxygen Flow Rate 0 Narrative Exam Narrative: Alert thin elderly male lying in bed in no acute distress Lungs actually sound pretty good today heart is regular rate and rhythm extremities normal abdomen is benign Objective Labs 07/25/23 04:04 07/25/23 04:04 Labs: Laboratory Results - last 24 hr 07/25/23 04:04 WBC 9.3 RBC 3.68 L Hgb 10.6 L Hct 30.5 L MCV 82.8 MCH 28.9 MCHC 34.9 RDW 15.5 H Plt Count 759 H Neut % (Auto) 63.7 Lymph % (Auto) 19.0 L [place] % (Auto) 10.9 Eos % (Auto) 5.0 H Baso % (Auto) 1.4 Neut # (Auto) 5900 Lymph # (Auto) 1800 [place] # (Auto) 1000 H Eos # (Auto) 500 H Baso # (Auto) 100 RBC Morphology Normal morphology Sodium 130 L Potassium 4.1 Chloride 98 Carbon Dioxide 27 BUN 12 Creatinine 0.36 L Estimated GFR > 60 BUN/Creatinine Ratio 33.3 H Glucose 99 Calcium 8.5 Total Bilirubin 0.3 AST 39 ALT 45 Alkaline Phosphatase 65 Total Protein 6.1 L Albumin 2.6 L Globulin 3.5 Albumin/Globulin Ratio 0.7 L PFSH Medical History Substance abuse Excessive drinking alcohol Shortness of breath Sinus drainage Chronic cough Hypertension Marijuana smoker Current every day smoker Paranoid schizophrenia Surgical History H/O rhinoplasty History of dental surgery Social History household members: friend(s) Smoking Status: Former smoker alcohol intake: former Assessment & Plan Assessment and plan (1) Empyema: Status: Acute Assessment & Plan narrative: Empyema. Strep viridans. Sensitivity was not done. Contacted lab and they will not do that today. Will hold antibiotics stable at this time. Has had pretty virulent appearing discharge from his chest tube. Discussed with surgeons. Concern for possible need for transfer for higher level care but after discussion they will treat here. CT scan is improved. White count is better overall stable will continue current therapy and re-evaluate after that. Acute respiratory failure. Appears to be resolved. Breathing comfortably. Without significant change. Question cancer. No evidence of it at this time. Will follow. Will be sent and we will watch closely as an outpatient. Hyponatremia. Appears to be resolved. Will rechecked tomorrow. Malnutrition. Has per nutrition consult. Alcohol misuse disorder. Currently stable. No evidence of withdrawal support has not drinking. COPD. Overall stable. Schizophrenia doing well. Code status DNR. Intubation if needed. DVT prophylaxis on treatment Disposition. Unclear how long this will take but I suspect he will be here 3 or 4 more days some will depend on when they put in the chest tube. Quality VTE Deep Vein Thrombosis/Pulmonary Embolism Present on Admission: No
[2023-07-25] MEDS: ALTEPLASE 2 MG/2 ML VIAL INST (12:25)
--- NOTE | 2023-07-25 15:34 | CM.DPC ---
DCp Cont. Reviewed EMR for status updates. Pt continues to improve, but likely 2-more days needed for inpt tx prior to d/c. Pt may benefit from Home Health prior to d/c, did not speak with him about this yet today, will need f/u conversation to see if he is accepting.
--- NOTE | 2023-07-25 15:44 | CM.DPC ---
DCP Cont. Reviewed EMR and team rounds for status updates. Pt continues to improve, will most likely need 2-more days inpt before being medically stable for d/c. Unsure at this time if any home health or other OP resources will be needed. Unable to meet with pt in person today, cont. to monitor for final d/c recommendations and needs.
--- NOTE | 2023-07-25 16:01 | PM.PN.1 ---
Subjective Subjective Date Patient Seen: 07/25/23 Time Patient Seen: 16:01 Interval history: No acute overnight events. CT chest significant improvement in left pleural effusion Breathing is easier not requiring oxygen Exam Vital Signs (past 8 hours): - 07/25/23 11:21 07/25/23 11:59 07/25/23 15:27 Temperature 97.8 F Pulse Rate 84 95 H 82 Respiratory Rate 18 16 18 Blood Pressure 118/71 Pulse Oximetry 96 96 96 Oxygen Delivery Method Room Air Room Air Oxygen Flow Rate 0 0 Fraction of Inspired Oxygen 21 21 Fraction of Inspired Oxygen 21 SaO2/FiO2 Ratio 457 Oxygen Delivery Method Room Air Oxygen Flow Rate 0 Narrative Exam Narrative: General adult man alert oriented no acute distress Chest left chest tube in place to suction with purulent drainage. Objective Labs 07/25/23 04:04 07/25/23 04:04 Labs: Laboratory Results - last 24 hr 07/25/23 04:04 WBC 9.3 RBC 3.68 L Hgb 10.6 L Hct 30.5 L MCV 82.8 MCH 28.9 MCHC 34.9 RDW 15.5 H Plt Count 759 H Neut % (Auto) 63.7 Lymph % (Auto) 19.0 L [place] % (Auto) 10.9 Eos % (Auto) 5.0 H Baso % (Auto) 1.4 Neut # (Auto) 5900 Lymph # (Auto) 1800 [place] # (Auto) 1000 H Eos # (Auto) 500 H Baso # (Auto) 100 RBC Morphology Normal morphology Sodium 130 L Potassium 4.1 Chloride 98 Carbon Dioxide 27 BUN 12 Creatinine 0.36 L Estimated GFR > 60 BUN/Creatinine Ratio 33.3 H Glucose 99 Calcium 8.5 Total Bilirubin 0.3 AST 39 ALT 45 Alkaline Phosphatase 65 Total Protein 6.1 L Albumin 2.6 L Globulin 3.5 Albumin/Globulin Ratio 0.7 L [facility] Medical History Substance abuse Excessive drinking alcohol Shortness of breath Sinus drainage Chronic cough Hypertension Marijuana smoker Current every day smoker Paranoid schizophrenia Surgical History H/O rhinoplasty History of dental surgery Social History household members: friend(s) Smoking Status: Former smoker alcohol intake: former Assessment & Plan Assessment and plan (1) Empyema: Status: Acute Assessment & Plan narrative: 57-year-old man with a resolving left pleural effusion -tPA via chest tube today. -anticipate removal of chest tube tomorrow Quality VTE Deep Vein Thrombosis/Pulmonary Embolism Present on Admission: No
[2023-07-25] MEDS: OXYCODONE/ACETAMINOPHEN 5/325 TABLET 1 TAB PO (18:08)
[2023-07-26] VITALS (9 sets, daily range): BP systolic 99–119; BP diastolic 58–74; PULSE 73–97; RESP 16–20; TEMP 36.1–37; O2SAT 93–97
[2023-07-26] MEDS: ACETAMINOPHEN 325 MG TABLET 650 MG PO ×4 (01:09→23:56)
[2023-07-26] MEDS: VANCOMYCIN 1,250 MG/250 ML PIGGYBACK 250 MG IV ×2 (01:09→07:43)
[2023-07-26] MEDS: PIPERACILLIN/TAZO 3.375 GM in SODIUM CHLORIDE 0.9% 100 ML IV (03:31)
--- NOTE | 2023-07-26 06:58 | DI.RAD.S_ITS ---
PROCEDURE: XR CHEST 1V INDICATIONS: F/U L pleural effusion TECHNIQUE: One view of the chest was acquired. COMPARISON: [facility], CT, CT CHEST WO CON, 07/24/2023, 13:14. [facility], CR, XR CHEST 1V, 07/23/2023, 7:30. FINDINGS: Surgical changes and devices: Left-sided chest tube is unchanged. Lungs and pleura: Left lung hazy opacity most pronounced in the lower lobe. Small left pleural effusion, unchanged. No significant pneumothorax appreciated. Suspect trace right pleural effusion. Right lung appears clear. Emphysematous change. Mediastinum: Mediastinal contours appear normal. Heart size is normal. Bones and chest wall: No suspicious bony lesions. Overlying soft tissues appear unremarkable. IMPRESSION: Small left pleural effusion is unchanged. Left-sided chest tube is unchanged. No pneumothorax appreciated. Dictated by: Jack Pack M.D. on 07/26/2023 at 7:39 Approved by: Jack Pack M.D. on 07/26/2023 at 7:42
[2023-07-26] MEDS: ALBUTEROL 2.5 MG/3 ML NEB (ADULT) INH ×4 (07:58→22:44)
--- NOTE | 2023-07-26 08:21 | P.PN_ITS ---
Subjective Subjective Date Patient Seen: 07/26/23 Time Patient Seen: 08:21 Interval history: No acute overnight events. A.m. chest x-ray demonstrates small residual left pleural effusion not significantly changed over the past 24 hours. Breathing well on room air. Less than 100 mL of output over the past 24 hours. Exam Vital Signs (past 8 hours): - 07/26/23 04:00 07/26/23 07:44 07/26/23 07:58 Temperature 98.1 F Pulse Rate 86 79 Respiratory Rate 16 18 Blood Pressure 115/70 Pulse Oximetry 97 94 Oxygen Delivery Method Room Air Room Air Oxygen Flow Rate 0 0 Fraction of Inspired Oxygen 21 07/26/23 08:00 Temperature 98.6 F Pulse Rate 73 Respiratory Rate 19 Blood Pressure 99/62 Pulse Oximetry 94 Oxygen Delivery Method Oxygen Flow Rate 0 Fraction of Inspired Oxygen Fraction of Inspired Oxygen 21 SaO2/FiO2 Ratio 447 Oxygen Delivery Method Room Air Oxygen Flow Rate 0 Narrative Exam Narrative: General adult man alert oriented no acute distress Chest nonlabored respiration Objective Labs 07/25/23 04:04 07/25/23 04:04 [facility] Medical History Substance abuse Excessive drinking alcohol Shortness of breath Sinus drainage Chronic cough Hypertension Marijuana smoker Current every day smoker Paranoid schizophrenia Surgical History H/O rhinoplasty History of dental surgery Social History household members: friend(s) Smoking Status: Former smoker alcohol intake: former Assessment & Plan Assessment and plan (1) Pleural effusion: Status: Acute Assessment & Plan narrative: 57-year-old male left pleural effusion. Chest x-ray from this morning demonstrates small residual left pleural effusion however clinically he is doing quite well and this has improved dramatically from the complete white out at admission. -chest tube removed this morning. -repeat chest x-ray in 2 hours if no significant pneumothorax may discharge home from my perspective. Quality VTE Deep Vein Thrombosis/Pulmonary Embolism Present on Admission: No
[2023-07-26] MEDS: ENOXAPARIN 40 MG/0.4 ML SYRINGE SUBCUT (08:31)
[2023-07-26] MEDS: MULTIVITAMIN 1 TABLET 1 TAB PO (08:31)
[2023-07-26] MEDS: FOLIC ACID 1 MG TABLET PO (08:31)
--- NOTE | 2023-07-26 09:08 | PM.PN.1 ---
Subjective Subjective Date Patient Seen: 07/26/23 Time Patient Seen: 09:09 Interval history: Patient seen in follow-up of left-sided empyema. Actually feeling well. Had chest tube pulled today. Otherwise no change. He has been doing well without other significant changes or complaints. Pain is better today. Had some acute pain last night but now is better. Exam Vital Signs (past 8 hours): - 07/26/23 04:00 07/26/23 07:44 07/26/23 07:58 Temperature 98.1 F Pulse Rate 86 79 Respiratory Rate 16 18 Blood Pressure 115/70 Pulse Oximetry 97 94 Oxygen Delivery Method Room Air Room Air Oxygen Flow Rate 0 0 Fraction of Inspired Oxygen 21 07/26/23 08:00 Temperature 98.6 F Pulse Rate 73 Respiratory Rate 19 Blood Pressure 99/62 Pulse Oximetry 94 Oxygen Delivery Method Oxygen Flow Rate 0 Fraction of Inspired Oxygen Fraction of Inspired Oxygen 21 SaO2/FiO2 Ratio 447 Oxygen Delivery Method Room Air Oxygen Flow Rate 0 Narrative Exam Narrative: Alert male in no acute distress Chest tubes removed. Lungs are actually pretty good today. Heart is regular rate and rhythm. Objective Labs 07/25/23 04:04 07/25/23 04:04 [facility] Medical History Substance abuse Excessive drinking alcohol Shortness of breath Sinus drainage Chronic cough Hypertension Marijuana smoker Current every day smoker Paranoid schizophrenia Surgical History H/O rhinoplasty History of dental surgery Social History household members: friend(s) Smoking Status: Former smoker alcohol intake: former Assessment & Plan Assessment & Plan narrative: Empyema strep viridans. Sensitivities shows pretty much pansensitive. We discussed with the patient we are going to discontinue his IV antibiotics place on Levaquin and discharge tomorrow if stable. Appreciate surgical input and help with chest tube. Overall doing much better. And will see how things go. Acute respiratory failure. Stable. Appears to be resolved. Question of possible cancer initially. No evidence of cancer we will follow and repeat CT scan once implant is completely gone. See what lungs look like when they are not compressed. Malnutrition. Dietary consulted. Hopefully they have a plan. Alcohol misuse disorder. Patient currently stable. Support given for not drinking COPD. Overall stable doing well. Encouraged him not to smoke. Schizophrenia stable. Usual meds Code status DNR. Intubation if needed DVT prophylaxis on treatment Disposition if does well white count stable no fever feeling well tomorrow will discharge to home with follow-up with me next week Quality VTE Deep Vein Thrombosis/Pulmonary Embolism Present on Admission: No
[2023-07-26] MEDS: levoFLOXacin 250 MG TABLET 750 MG PO (09:25)
--- NOTE | 2023-07-26 10:00 | DI.RAD.S_ITS ---
PROCEDURE: XR CHEST 1V INDICATIONS: SP chest tube removal TECHNIQUE: One view of the chest was acquired. COMPARISON: [facility], CT, CT CHEST WO CON, 07/24/2023, 13:14. [facility], CR, XR CHEST 1V, 07/26/2023, 7:13. FINDINGS: Surgical changes and devices: Interval removal of left chest tube. Lungs and pleura: Left basilar consolidation persists. Right lung is clear. Small non layering left pleural effusion persists. No pneumothorax Mediastinum: Mediastinal contours appear normal. Heart size is normal. Bones and chest wall: No suspicious bony lesions. Overlying soft tissues appear unremarkable. IMPRESSION: 1. Interval removal of left chest tube. Small non layering left pleural effusion persists. 2. Left basilar consolidation persists most compatible with atelectasis/pneumonia. Dictated by: Seda Velazquez M.D. on 07/26/2023 at 10:17 Approved by: Seda Velazquez M.D. on 07/26/2023 at 10:20
--- NOTE | 2023-07-26 14:13 | DIET.PN1 ---
Dietary Progress Note Assessment: Pt reports good appetite though taste buds have changed and some foods are not tasting very good. Endorses confidence in choosing foods. Endorses access to adequate food and social support at home. Also endorses access to regular ONS at home. Currently on high kcal version. PO documented as 50-100% at meals. Kitchen has also been sending protein shakes in addition to ONS. Physically still visibly malnourished. Encouraged ONS TID at home with original at 220kcal each (660 additional kcals per day with ONS), in addition to solid foods. No new wts in EMR. Ht: 170.18 cm Wt: 57.606 kg BMI: 19.8 Last BM: 07/24/23 (07/24/23 11:46) MNA: 10 Mitchell Score: 21 Diet: 07/19/23 Breakfast General (Regular) Diet Diet Modifications: Nutrition Percent Meal Consumed 100% 07/26/23 13:08 Percent Meal Consumed 100% 07/26/23 09:04 Percent Meal Consumed 50% 07/25/23 18:00 Percent Meal Consumed 100% 07/25/23 14:00 Percent Meal Consumed 50% 07/25/23 08:00 Percent Meal Consumed 100% 07/25/23 01:00 Percent Meal Consumed 50% 07/24/23 18:00 Labs: RBC 3.68 X10^6/uL (4.5-5.9) L 07/25/23 04:04 Hgb 10.6 g/dL (13.5-17.5) L 07/25/23 04:04 Hct 30.5 % (41-53) L 07/25/23 04:04 Creatinine 0.36 mg/dL (0.66-1.25) L 07/25/23 04:04 Lactate 1.3 mmol/L (0.7-2.1) 07/19/23 16:21 NT-Pro-B Natriuret Pep 282 pg/mL (<125) H 07/19/23 16:21 Nutrition Diagnosis: Acute severe protein calorie malnutrition r/t inadequate PO with reported schizophrenic episode aeb severe muscle mass/fat losses, >5% weight loss in one month, and reported <75% EER for one month. -The patient is at much higher risk for medical and surgical complications because of his malnutrition.? This increases the difficulty and complexity of medical and surgical interventions and increases the chances of poor outcomes such as morbidity and mortality. EER: 102-114g PRO (1.8-2g/kg per malnutrition) ; 2200-2300kcal (38-40kcal/kg per BMI) Interventions: 1. Reviewed home plan for kcal intake and access to ONS 2. Encouraged ONS TID with regular ONS vs high kcal 3. Encouraged other high kcal foods to increase weight and muscle mass 4. Asked staff for a new wt for review Monitoring/Evaluations: RDN f/u 3-5 days Electronically Signed by: Kat Orellana 07/26/23 14:13 Clinical Dietitian [address] [id number]
[2023-07-26] MEDS: SODIUM CHLORIDE 0.9% FLUSH 10 ML IV (20:58)
[2023-07-27] VITALS: BP 104/64; PULSE 89; RESP 18; TEMP 36.4; O2SAT 96
[2023-07-27 04:59] LABS: Add Manual Diff / Slide Review NO; Basophils Absolute Auto 0 /uL (0-100); Basophils Percent Auto 0.4 % (0-2); Eosinophils Absolute Auto 400 /uL (0-450); Hematocrit 30.5 % (41-53); Hemoglobin 10.4 g/dL (13.5-17.5); Lymphocytes Absolute Auto 1800 /uL (1100-4500); Lymphocytes Percent Auto 19.7 % (25-40); Mean Corpuscular Hemoglobin 28.2 PG (26-34); Mean Corpuscular Volume 82.8 fL (80-100); Monocytes Absolute Auto 1000 /uL (0-900); Neutrophils Absolute Auto 5800 /uL (1500-7000); Neutrophils Percent Auto 64.9 % (50-75); Platelet Count 691 X10^3/uL (150-400); Red Blood Cell Count 3.69 X10^6/uL (4.5-5.9); Red Cell Distribution Width 15.6 % (11.6-14.8); White Blood Cell Count 8.9 X10^3/uL (4.5-11.0)
[2023-07-27 05:15] LABS: Alanine Aminotransferase 49 IU/L (<50); Albumin 2.8 g/dL (3.5-5.0); Albumin Globulin Ratio 0.8 (1.0-2.8); Alkaline Phosphatase 53 U/L (38-126); Aspartate Aminotransferase 33 IU/L (17-59); BUN Creatinine Ratio 43.3 (6-22); Bilirubin Total 0.4 mg/dL (0.2-1.3); Blood Urea Nitrogen 13 mg/dL (9-20); Calcium 8.7 mg/dL (8.4-10.2); Carbon Dioxide 28 mmol/L (22-32); Chloride 98 mmol/L (98-107); Estimated Glomerular Filt Rate > 60 mL/min (>60); Globulin 3.6 g/dL (1.7-4.1); Glucose 96 mg/dL (70-100); HEMOLYSIS < 15 (0-50); Potassium 3.7 mmol/L (3.4-5.1); Sodium 131 mmol/L (137-145); Total Protein 6.4 g/dL (6.3-8.2)
[2023-07-27 05:33] VITALS: BP 91/64; PULSE 85; RESP 16; TEMP 36.6; O2SAT 96
[2023-07-27 08:33] VITALS: BP 114/73; PULSE 79; RESP 19; TEMP 36.9; O2SAT 96
[2023-07-27] MEDS: ALBUTEROL 2.5 MG/3 ML NEB (ADULT) INH (08:34)
[2023-07-27 08:35] VITALS: PULSE 70; RESP 18; O2SAT 94
[2023-07-27] MEDS: ENOXAPARIN 40 MG/0.4 ML SYRINGE SUBCUT (08:55)
[2023-07-27] MEDS: MULTIVITAMIN 1 TABLET 1 TAB PO (08:55)
[2023-07-27] MEDS: FOLIC ACID 1 MG TABLET PO (08:55)
--- NOTE | 2023-07-27 10:19 | DI.RAD.S_ITS ---
PROCEDURE: XR CHEST 2V INDICATIONS: history of empyema TECHNIQUE: 2 views of the chest were acquired. COMPARISON: [facility], CT, CT CHEST WO CON, 07/24/2023, 13:14. [facility], CR, XR CHEST 1V, 07/26/2023, 10:00. FINDINGS: Surgical changes and devices: None. Lungs and pleura: Question slight interval increase in left empyema. Associated left basilar atelectasis and possible consolidation. Mediastinum: Mediastinal contours are normal. Heart size is normal. Bones and chest wall: No suspicious bony abnormalities. Soft tissues appear unremarkable. IMPRESSION: Question slight interval increase in left empyema. Associated left basilar atelectasis and possible consolidation. Comment: Consider repeat CT as a means of direct comparison for any changes relative to the recent CT chest without contrast. Dictated by: Elijah Paula M.D. on 07/27/2023 at 11:03 Approved by: Elijah Paula M.D. on 07/27/2023 at 11:05
[2023-07-27] MEDS: levoFLOXacin 250 MG TABLET 750 MG PO (10:50)
[2023-07-27 12:00] VITALS: BP 105/68; PULSE 80; RESP 19; TEMP 37.3; O2SAT 94
[2023-07-27] MEDS: ACETAMINOPHEN 325 MG TABLET 650 MG PO (12:10)
--- NOTE | 2023-07-27 12:24 | PM.DS.1 ---
History of Present Illness History of Present Illness Date Patient Seen: 07/27/23 Time Patient Seen: 12:24 Date of Onset of Symptoms: 06/28/23 Chief complaint: quite smoking last mon-cant breathetemphardtostand Narrative: See dictated history and physical 07/20/2023 Discharge Providers Provider Date of admission: 07/19/23 19:13 Discharge Date: 07/27/23 Primary care physician: Ken Jensen MD Consults: 07/19/23 20:23 Consult to Dietitian, Adult Routine Comment: Reason For Exam: weight loss and history of alcohol abuse 07/19/23 20:25 Consult to Discharge Planning Routine Comment: 07/19/23 20:58 Consult to Pastoral Services Routine Comment: pt would like to talk 07/25/23 18:33 Consult to Dietitian, Adult Routine Comment: Reason For Exam: pt with significant weight loss and protein malnut Discharge provider: Ken Jensen MD Summary Hospital Course Discharge Diagnosis: Empyema left side Pneumonia Long history of smoking Severe protein malnutrition Schizophrenia Hospital Course: Empyema left side. Patient was admitted originally thought to have cancer with effusion. He does have a 4 pack a day history of smoking which was been for many years. Patient actually was not hypoxic on the time of admission. But was feeling weak tired and as long as he did not move he was not hypoxic. Patient was originally started on antibiotics cefepime for his pneumonia that was felt to be present on day 1 he had a diagnostic tap of the presumed effusion and was found to be purulent. He was switched to vanco and Rocephin. Blood cultures cytology was sent but it appeared to be actively infected. On day 2 surgery was consulted for question of need for drainage. With chest tube periods and felt as if they should give trial of antibiotics. Two days later CT scan was shown with loculated of the material empyema and chest tube was placed. Had significant purulent drainage. Patient improved clinically on a daily basis. Grew out strep viridans. Did not have a definitive sensitivity until yesterday. Patient was continued on antibiotics until 1 day prior to discharge where he was started on oral medicines. His white count remained stable. He felt better continually and chest tube was pulled day prior to discharge. He would a slight increase in worsening of his chest x-ray with the empyema but otherwise had been doing well he is breathing well feeling well he was ambulating and it was elected to discharge home with close follow-up. He will be placed on Levaquin and will have chest x-ray on Monday I will see him on Monday. Without other changes. Patient understands when to call and what we are looking for. Pneumonia. Probably or maybe the start. Did not grow any bacteria. He did well. And actually wants his empyema was drained was breathing much improved. Still has some atelectasis. Patient will be continued on Levaquin and we will follow as an outpatient. Possible cancer. We do not find anything definitive that would be cancerous either in his lungs or in his effusion or empyema. But will need to be followed as an outpatient. Will need to follow CT anyway due to his empyema and we will re-evaluate. He understands questions answered is going to coordinate continue to quit smoking Severe protein malnutrition. Patient is severely malnourished and dietitian was consulted. Will go home on ensure plus 3 times a day and will follow up with dietitian and knee next week History of smoking encouraged to continue stopping. History of alcohol use. Continued encouragement to stay off alcohol. Schizophrenia. Actually doing well. Continue his usual meds. No issue during this admission. 40 minutes spent reviewing x-ray discussing with nurse orders dictation Exam Vital Signs (past 8 hours): - 07/27/23 05:33 07/27/23 08:33 07/27/23 08:35 Temperature 97.9 F 98.4 F Pulse Rate 85 79 70 Respiratory Rate 16 19 18 Blood Pressure 91/64 114/73 Pulse Oximetry 96 96 94 Oxygen Delivery Method Room Air Oxygen Flow Rate 0 0 Fraction of Inspired Oxygen 21 SaO2/FiO2 Ratio 447 Oxygen Delivery Method Room Air Oxygen Flow Rate 0 Narrative Exam Narrative: Alert thin male in no acute distress smiling interactive HEENT exam is unremarkable mucous membranes moist neck supple without adenopathy no supraclavicular adenopathy lungs with decreased breath sounds left base with no rhonchi or wheeze which for me seems slightly better abdomen is soft positive bowel sounds nontender heart is regular rate and rhythm without murmur extremities without cyanosis clubbing edema Objective Labs 07/27/23 04:49 07/27/23 04:49 Labs: Laboratory Results - last 24 hr 07/27/23 04:49 WBC 8.9 RBC 3.69 L Hgb 10.4 L Hct 30.5 L MCV 82.8 MCH 28.2 MCHC 34.0 RDW 15.6 H Plt Count 691 H Neut % (Auto) 64.9 Lymph % (Auto) 19.7 L Mclennan % (Auto) 11.0 Eos % (Auto) 4.0 Baso % (Auto) 0.4 Neut # (Auto) 5800 Lymph # (Auto) 1800 Mclennan # (Auto) 1000 H Eos # (Auto) 400 Baso # (Auto) 0 Sodium 131 L Potassium 3.7 Chloride 98 Carbon Dioxide 28 BUN 13 Creatinine 0.30 L Estimated GFR > 60 BUN/Creatinine Ratio 43.3 H Glucose 96 Calcium 8.7 Total Bilirubin 0.4 AST 33 ALT 49 Alkaline Phosphatase 53 Total Protein 6.4 Albumin 2.8 L Globulin 3.6 Albumin/Globulin Ratio 0.8 L PFSH Medical History Substance abuse Excessive drinking alcohol Shortness of breath Sinus drainage Chronic cough Hypertension Marijuana smoker Current every day smoker Paranoid schizophrenia Surgical History H/O rhinoplasty History of dental surgery Social History household members: friend(s) Smoking Status: Former smoker alcohol intake: former Discharge Assessment & Plan Assessment and Plan Assessment: improved Plan of Treatment: Discharge home Discharge Plan Discharge Plan Patient Disposition: Home Discharge orders & Medications Prescriptions: New levofloxacin 750 mg tablet 750 mg PO DAILY Qty: 10 0RF Continued aripiprazole 2 mg tablet 2 mg PO DAILY Rx Instructions: gets IM shot qmonth. last does was 07/11/23 ibuprofen 200 mg tablet 400 mg PO Q6H Qty: 60 0RF acetaminophen [Tylenol] 325 mg capsule 650 mg PO QID PRN (Reason: pain) Qty: 60 0RF Follow up/Referrals: Ken Jensen MD [Primary Care Provider] - 08/01/23 4:00 pm (Appt:08/01 @ 4:[address] Jensen please arrive 15 min prior to scheduled appointment time ) Other Ambulatory Orders: XR chest 2V (Routine) Timeframe: 4 Days Facility: [facility] - Location: Radiology Ordered By: Ken Jensen Discharge Health Status Multidrug resistant organism: No MDRO Diet/Activity/Treatments Diet: Diet as Tolerated Activity: As tolerated Visit Report/Discharge Packet Stand Alone Forms: Patient Portal/API, Stroke Signs & Symptoms Discharge Data Primary Care Provider: Ken Jensen Quality VTE Deep Vein Thrombosis/Pulmonary Embolism Present on Admission: No
--- NOTE | 2023-07-27 13:31 | CM.DPNOTE ---
DC Note Discharge home, family member to transport, close outpatient follow up recommended. No barriers to safe return home identified. JW
== END 2023-07-27 14:00 | disposition home or self-care (01) | DRG 177 ==
LOC: ED 19:09 → AC 19:25
PROVIDERS: Family Medicine; Admitting Provider Family Medicine; Emergency Provider Emergency Medicine; Family Provider Family Medicine; PCP Family Medicine; Referring Provider Emergency Medicine; Visit Provider Family Medicine
DX: J86.9 Pyothorax without fistula (principal); E43 Unspecified severe protein-calorie malnutrition; J96.01 Acute respiratory failure with hypoxia; J18.9 Pneumonia, unspecified organism; J90 Pleural effusion, not elsewhere classified; J98.11 Atelectasis; J44.0 Chronic obstructive pulmonary disease with (acute) lower respiratory infection; F20.9 Schizophrenia, unspecified; C80.1 Malignant (primary) neoplasm, unspecified; Z66 Do not resuscitate; Z87.891 Personal history of nicotine dependence; Z68.20 Body mass index [BMI] 20.0-20.9, adult
CPT/HCPCS: 32555; 36415; 71045; 71046; 71250; 71260; 80053; 80202; 81001; 82947; 83605; 83615; 83690; 83880; 84145; 84155; 85007; 85025; 85610; 85730; 87040; 87070; 87075; 87077; 87116; 87186; 87205; 87206; 87801; 89051; 93005; 94640; 94760; 94762; 96365; 96366; 96375; 99284; J0692; J1650; J2405; J2543; J2997; J3010; J7613; Q9967

== ENCOUNTER → 2023-07-31 15:22 | Outpatient (CLI) | payer OTHER, MEDICAID, SELFPAY ==
[2023-07-19 20:41] VITALS: BMI 19.8
--- NOTE | 2023-07-31 15:26 | DI.RAD.S_ITS ---
PROCEDURE: XR CHEST 2V INDICATIONS: follow up emyema left TECHNIQUE: 2 views of the chest were acquired. COMPARISON: [facility], CR, XR CHEST 2V, 07/27/2023, 10:30. [facility], CR, XR CHEST 1V, 07/26/2023, 10:00. FINDINGS: Surgical changes and devices: None. Lungs and pleura: Moderate left pleural effusion is increased compared to prior. There is a moderate amount of gas in the left lung space which appears to be extrapleural. There is adjacent likely compressive atelectasis versus consolidation. Mediastinum: Mediastinal contours are normal. Heart size is normal. Bones and chest wall: No suspicious bony abnormalities. Soft tissues appear unremarkable. IMPRESSION: Moderate left pleural effusion is increased compared to prior. There appears to be a moderate amount of extrapleural gas on the left. This does not have the typical appearance of a pneumothorax. Recommend CT chest for further evaluation. Patient was instructed to go to the ER for further evaluation. Dictated by: Calvin Suresh M.D. on 07/31/2023 at 15:37 Approved by: Calvin Suresh M.D. on 07/31/2023 at 15:42
== END ==
PROVIDERS: Family Provider Family Medicine; PCP Family Medicine; Referring Provider Family Medicine; Visit Provider Family Medicine
DX: J90 Pleural effusion, not elsewhere classified (principal); J86.9 Pyothorax without fistula
CPT/HCPCS: 71046

== ENCOUNTER 2023-07-31 15:41 | Emergency (ER) | payer OTHER, MEDICAID, SELFPAY ==
[2023-07-19 20:41] VITALS: BMI 19.8
[2023-07-31] VITALS (19 sets, daily range): BP systolic 96–124; BP diastolic 58–82; PULSE 97–114; RESP 17–42; TEMP 36.7; O2SAT 94–96; BMI 19.3
[2023-07-31 16:27] LABS: Add Manual Diff / Slide Review NO; Basophils Absolute Auto 100 /uL (0-100); Basophils Percent Auto 0.8 % (0-2); Eosinophils Absolute Auto 100 /uL (0-450); Eosinophils Percent Auto 0.4 % (2-4); Hematocrit 30.2 % (41-53); Hemoglobin 10.2 g/dL (13.5-17.5); Lymphocytes Absolute Auto 1300 /uL (1100-4500); Lymphocytes Percent Auto 7.4 % (25-40); Mean Corpuscular HGB Conc 33.8 % (30-36); Mean Corpuscular Hemoglobin 28.3 PG (26-34); Mean Corpuscular Volume 83.6 fL (80-100); Monocytes Absolute Auto 1300 /uL (0-900); Monocytes Percent Auto 7.5 % (3-14); Neutrophils Absolute Auto 14100 /uL (1500-7000); Neutrophils Percent Auto 83.9 % (50-75); Platelet Count 686 X10^3/uL (150-400); Red Blood Cell Count 3.61 X10^6/uL (4.5-5.9); White Blood Cell Count 16.9 X10^3/uL (4.5-11.0)
[2023-07-31 16:36] LABS: INR 1.5 (0.9-1.3); Prothrombin Time 16.7 SECONDS (9.4-12.5)
[2023-07-31 16:39] LABS: PTT Partial Thromboplastin Tim 27 SECONDS (25.1-36.5)
[2023-07-31 16:42] LABS: Alanine Aminotransferase 39 IU/L (<50); Albumin 3.2 g/dL (3.5-5.0); Albumin Globulin Ratio 0.8 (1.0-2.8); Alkaline Phosphatase 61 U/L (38-126); Aspartate Aminotransferase 33 IU/L (17-59); BUN Creatinine Ratio 18.2 (6-22); Bilirubin Total 0.5 mg/dL (0.2-1.3); Blood Urea Nitrogen 6 mg/dL (9-20); Calcium 8.9 mg/dL (8.4-10.2); Carbon Dioxide 29 mmol/L (22-32); Chloride 94 mmol/L (98-107); Estimated Glomerular Filt Rate > 60 mL/min (>60); Globulin 3.9 g/dL (1.7-4.1); Glucose 104 mg/dL (70-100); HEMOLYSIS < 15 (0-50); Lipase 65 U/L (23-300); Potassium 3.5 mmol/L (3.4-5.1); Sodium 128 mmol/L (137-145); Total Protein 7.1 g/dL (6.3-8.2)
--- NOTE | 2023-07-31 16:45 | DI.CT.S_ITS ---
PROCEDURE: CT CHEST W CON INDICATIONS: recurrent loculated empyema TECHNIQUE: After the administration of intravenous contrast, 5 mm thick sections acquired from the pulmonary apices to the posterior costophrenic angles. 1 mm axial lung, 5 mm thick coronal and sagittal reformats and 7 mm axial MIP were acquired. For radiation dose reduction, the following was used: automated exposure control, adjustment of mA and/or kV according to patient size. COMPARISON: [facility], CT, CT CHEST WO CON, 07/22/2023, 9:40. [facility], CT, CT CHEST WO CON, 07/24/2023, 13:14. FINDINGS: Image quality: Diagnostic. Lungs and pleura: Compared to previous study, there is interval removal of the chest tube in left pleural space. There is interval markedly increased in size of patient's known loculated left-sided pleural effusion with air-fluid level. Near complete atelectasis of left lower lobe and atelectasis along periphery of left upper lobe is seen. A small loculated pleural collection within medial aspect of left upper lobe is seen series 2, image 24 and measures 1.3 x 3.3 cm in size. Increased reticular nodular thickening in periphery of bilateral aerated lung valdez are seen. Mild centrilobular emphysema is also seen. No pneumothorax. No right-sided pleural effusion. Central and peripheral airway is patent. Mediastinum: Heart size is normal. No pericardial effusion. Mildly prominent mediastinal lymph nodes are seen measures up to 9 mm in pre-vascular space. Thoracic aorta and central pulmonary arteries are normal in size. Esophagus is normal in caliber. No hiatal hernia. Bones and chest wall: No suspicious bony lesions. No vertebral body compression fractures. No axillary or supraclavicular adenopathy by size criteria. No thyroid nodules which require sonographic follow up, per consensus guidelines. Upper Abdomen: Visualized upper abdominal solid organs appear normal. Upper abdominal bowel loops are normal in caliber. IMPRESSION: 1. Loculated left lateral pleural effusion significantly increased in size compared to previous study and show air-fluid level. Smaller loculated pleural effusion also seen in medial aspect of left upper lobe as above. No pneumothorax. Compressive atelectasis in left lung. 2. No right-sided pleural effusion. Appearance of right lung is not significantly changed from prior study. Airway is patent. 3. Mildly prominent mediastinal lymph nodes. No pericardial effusion. Dictated by: Mansoor Alexander M.D. on 07/31/2023 at 18:23 Approved by: Mansoor Alexander M.D. on 07/31/2023 at 18:32
--- NOTE | 2023-07-31 17:01 | ED.SOB ---
HPI - SOB/Dyspnea <Cecille Palma DO - Last Filed: 08/01/23 07:29> General Chief Complaint: Shortness of Breath/Dyspnea Stated Complaint: had chest xrays and was told to check in Time Seen by Provider: 07/31/23 15:52 Source: patient, RN notes reviewed and old records reviewed Mode of arrival: Ambulatory Limitations: no limitations History of Present Illness HPI Narrative: 57-year-old male with history of schizoaffective disorder on Abilify, recent empyema with loculated effusion requiring chest tube. Patient's empyema grew up strep intermedius pansensitive and discharged home on Levaquin. Patient had an outpatient chest x-ray today which showed reoccurrence. Was directed to the emergency department. Patient states he feels like he has been doing well he has been feeling a little anxious the last 12-24 hours but feels like he is overall been improving. He denies any active chest pain. He is had some mild shortness of breath. He states no fevers. No other GI or urinary symptoms reported. Patient has had a little bit of cough. He states the pain where his chest tube was inserted is improving. He is on Abilify once daily and had Abilify injection right around [facility]. He is on no other regular prescription medications. Was sent home with [facility] for antibiotics. States he gets violent with codeine but denies other allergies states he was on Invega in the past and had adverse reactions to this as well. States he quit tobacco, alcohol and recreational drugs in the last several weeks. Dr. Jensen is his primary care physician. He does follow regularly with mental health services. Was discharged from [facility] on the . Related Data Home Medications Medication Instructions Recorded Confirmed aripiprazole 2 mg tablet 2 mg PO DAILY 07/19/23 07/31/23 Previous Rx's Medication Instructions Recorded levofloxacin 750 mg tablet 750 mg PO DAILY #10 tabs 07/27/23 Allergies Allergy/AdvReac Type Severity Reaction Status Date / Time codeine [CODEINE] Allergy Unknown violent Verified 07/31/23 16:15 behavior Review of Systems <DO Carina Ayala Last Filed: 08/01/23 07:29> Review of Systems ROS Unobtainable: All systems reviewed & are unremarkable except as noted in HPI and below Patient History <Cecille Palma DO - Last Filed: 08/01/23 07:29> Medical History Substance abuse Excessive drinking alcohol Shortness of breath Sinus drainage Chronic cough Hypertension Marijuana smoker Current every day smoker Paranoid schizophrenia Surgical History H/O rhinoplasty History of dental surgery Social History household members: friend(s) Smoking Status: Former smoker alcohol intake: former Smoking Status: Former smoker alcohol intake frequency: other Substance Use Type: former substance user Exam <DO Carina Ayala Last Filed: 08/01/23 07:29> Narrative Exam Narrative: GENERAL: Alert and oriented x three, cachectic male in mild distress HEENT: Head normocephalic, atraumatic, EOMI, pupils reactive, face symmetric, moist mucous membranes NECK: Supple, full range of motion CARDIOVASCULAR: Regular rate and rhythm without murmurs, rubs or gallops. RESPIRATORY: Breath sounds decreased on the left, no wheezes rales or rhonchi. No tachypnea or accessory muscle use. Patient's speaks in full sentences. ABDOMEN: Soft, nontender. Normoactive bowel sounds all 4 quadrants. No guarding or rebound, rigidity, no mass : No CVA tenderness EXTREMITIES: Normal range of motion, no clubbing or edema. Neurovascularly intact NEUROLOGICAL: Cranial nerves II through XII grossly intact. Moving all extremities SKIN: Warm, dry, no petechiae, no rashes or lesions. Initial Vital Signs Initial Vital Signs: Vital Signs Pulse Rate 107 H 07/31/23 16:10 Respiratory Rate 20 07/31/23 16:10 Pulse Oximetry 95 07/31/23 16:10 <Saturnino Hrady MD - Last Filed: 08/01/23 00:36> Initial Vital Signs Initial Vital Signs: Vital Signs Pulse Rate 107 H 07/31/23 16:10 Respiratory Rate 20 07/31/23 16:10 Pulse Oximetry 95 07/31/23 16:10 Course <Cecille Palma DO - Last Filed: 08/01/23 07:29> Orders Ordered: Discontinued Medications Levofloxacin (Levaquin) 750 mg in 150 mls @ 100 mls/hr IV NOW ONE Stop: 07/31/23 18:36 Last Infusion: 07/31/23 19:15 Dose: Infused Documented By: Admin: 07/31/23 17:14 Dose: 100 mls/hr Documented By: SB Lorazepam (Lorazepam 2 Mg/Ml Inj) 0.5 mg IV NOW ONE Stop: 07/31/23 16:53 Last Admin: 07/31/23 17:10 Dose: Not Given Documented By: SB Lorazepam (Lorazepam 0.5 Mg Tablet) 1 mg PO NOW ONE Stop: 07/31/23 17:02 Last Admin: 07/31/23 17:10 Dose: 1 mg Documented By: ANN Vital Signs Vital signs: Vital Signs - 8 hr 07/31/23 23:30 07/31/23 23:30 08/01/23 00:00 Pulse Rate 105 H 101 H Respiratory Rate 26 H 21 Blood Pressure 119/72 Pulse Oximetry 95 95 Oxygen Delivery Method Room Air 08/01/23 00:00 08/01/23 00:30 08/01/23 00:30 Pulse Rate 107 H Respiratory Rate 32 H Blood Pressure 99/66 95/66 Pulse Oximetry 95 Oxygen Delivery Method Room Air <Saturnino Hardy MD - Last Filed: 08/01/23 00:36> Orders Ordered: Discontinued Medications Levofloxacin (Levaquin) 750 mg in 150 mls @ 100 mls/hr IV NOW ONE Stop: 07/31/23 18:36 Last Infusion: 07/31/23 19:15 Dose: Infused Documented By: Admin: 07/31/23 17:14 Dose: 100 mls/hr Documented By: ANN Lorazepam (Lorazepam 2 Mg/Ml Inj) 0.5 mg IV NOW ONE Stop: 07/31/23 16:53 Last Admin: 07/31/23 17:10 Dose: Not Given Documented By: ANN Lorazepam (Lorazepam 0.5 Mg Tablet) 1 mg PO NOW ONE Stop: 07/31/23 17:02 Last Admin: 07/31/23 17:10 Dose: 1 mg Documented By: ANN Consultations Consultation #1: At 9:45 p.m., the case is discussed with Dr. Marquez, thoracic surgery at [facility]. He is willing to accept the patient in transfer. I understand there are no beds at [facility]. Consultation #2: D/W Dr Gregory, CT surgery [facility], will consult if accepted by hospitalist. D/W Dr Ojeda, hospitalist at [facility], accepts transfer Vital Signs Vital signs: Vital Signs - 8 hr 07/31/23 23:30 07/31/23 23:30 08/01/23 00:00 Pulse Rate 105 H 101 H Respiratory Rate 26 H 21 Blood Pressure 119/72 Pulse Oximetry 95 95 Oxygen Delivery Method Room Air 08/01/23 00:00 08/01/23 00:30 08/01/23 00:30 Pulse Rate 107 H Respiratory Rate 32 H Blood Pressure 99/66 95/66 Pulse Oximetry 95 Oxygen Delivery Method Room Air MDM - SOB/Dyspnea <Cecille Palma, DO - Last Filed: 08/01/23 07:29> Lab Data 07/31/23 16:12 07/31/23 16:12 Labs: Lab Results 07/31/23 07/31/23 Range/Units 16:12 18:23 WBC 16.9 H (4.5-11.0) X10^3/uL RBC 3.61 L (4.5-5.9) X10^6/uL Hgb 10.2 L (13.5-17.5) g/dL Hct 30.2 L (41-53) % MCV 83.6 (80-100) fL MCH 28.3 (26-34) PG MCHC 33.8 (30-36) % RDW 16.0 H (11.6-14.8) % Plt Count 686 H (150-400) X10^3/uL Neut % (Auto) 83.9 H (50-75) % Lymph % (Auto) 7.4 L (25-40) % Carter % (Auto) 7.5 (3-14) % Eos % (Auto) 0.4 L (2-4) % Baso % (Auto) 0.8 (0-2) % Neut # (Auto) 04017 H (0313-4262) /uL Lymph # (Auto) 1300 (4404-6111) /uL Carter # (Auto) 1300 H (0-900) /uL Eos # (Auto) 100 (0-450) /uL Baso # (Auto) 100 (0-100) /uL PT 16.7 H (9.4-12.5) SECONDS INR 1.5 H (0.9-1.3) APTT 27 (25.1-36.5) SECONDS Sodium 128 L (137-145) mmol/L Potassium 3.5 (3.4-5.1) mmol/L Chloride 94 L (98-107) mmol/L Carbon Dioxide 29 (22-32) mmol/L BUN 6 L (9-20) mg/dL Creatinine 0.33 L (0.66-1.25) mg/dL Estimated GFR > 60 (>60) mL/min BUN/Creatinine Ratio 18.2 (6-22) Glucose 104 H (70-100) mg/dL Calcium 8.9 (8.4-10.2) mg/dL Total Bilirubin 0.5 (0.2-1.3) mg/dL AST 33 (17-59) IU/L ALT 39 (<50) IU/L Alkaline Phosphatase 61 (38-126) U/L Total Protein 7.1 (6.3-8.2) g/dL Albumin 3.2 L (3.5-5.0) g/dL Globulin 3.9 (1.7-4.1) g/dL Albumin/Globulin Ratio 0.8 L (1.0-2.8) Lipase 65 (23-300) U/L SARS-CoV-2 (PCR) Negative (Negative) Urine Dip Bedside Urine Glucose Negative Bedside Urine Bilirubin - Negative Bedside Urine Ketone - Negative Urine Specific [place] 1.005 Bedside Urine Occult Blood - Negative Bedside Urine pH 7.5 Bedside Urine Protein - Negative Bedside Urine Urobilinogen - Negative Bedside Urine Nitrite - Negative Bedside Urine Leukocytes - Negative Esterase Imaging Data Chest x-ray: Radiologist's Impression: Close Chest X-Ray (Signed) Calvin Suresh - 07/31/23 Chest X-Ray (Signed) Elijah Paula - 07/27/23 Chest X-Ray (Signed) Seda Velazquez - 07/26/23 Chest X-Ray (Signed) Jack Pack - 07/26/[address] (Signed) Call,Jack - 07/24/23 Chest X-Ray (Signed) Elijah Paula - 07/23/23 Chest X-Ray (Signed) Jose Vasquez - 07/22/[address] (Signed) Jose Vasquez - 07/22/23 Chest X-Ray (Signed) Staci Marcial - 07/20/23 Thoracentesis Ultrasound (Signed) Staci Marcial - 07/19/23 Chest X-Ray (Signed) Jack Pack - 07/19/23 Telemetry Strips 07/19/[address] (Signed) Ward Orourke - 07/19/23 Chest X-Ray (Signed) PedroJose - 07/19/23 Chest X-Ray (Signed) Seymour Carney - 09/24/21 Chest X-Ray (Signed) Mansoor Alexander - 08/27/21 Foot X-Ray (Signed) Mansoor Alexander - 05/24/21 Launch?Image [address] [address] XRay Report Signed Patient: Segun Miller MR#: [id number] : 1965 Acct:[id number] Age/Sex: 57 / M Date of Service: 07/31/23 Loc: RAD Accession Number: [id number] Procedure: XR chest 2V Ordering Provider: Ken Jensen MD PROCEDURE: XR CHEST 2V INDICATIONS: follow up emyema left TECHNIQUE: 2 views of the chest were acquired. COMPARISON: [facility], , XR CHEST 2V, 07/27/2023, 10:30. [facility], , XR CHEST 1V, 07/26/2023, 10:00. FINDINGS: Surgical changes and devices: None. Lungs and pleura: Moderate left pleural effusion is increased compared to prior. There is a moderate amount of gas in the left lung space which appears to be extrapleural. There is adjacent likely compressive atelectasis versus consolidation. Mediastinum: Mediastinal contours are normal. Heart size is normal. Bones and chest wall: No suspicious bony abnormalities. Soft tissues appear unremarkable. IMPRESSION: Moderate left pleural effusion is increased compared to prior. There appears to be a moderate amount of extrapleural gas on the left. This does not have the typical appearance of a pneumothorax. Recommend CT chest for further evaluation. Patient was instructed to go to the ER for further evaluation. Dictated by: Calvin Suresh M.D. on 07/31/2023 at 15:37 Approved by: Calvin Suresh M.D. on 07/31/2023 at 15:42 MDM Narrative Medical decision making narrative: 57-year-old male with recent empyema that grew out Streptococcus intermedius pansensitive. Patient had thoracentesis with inadequate drainage followed by chest tube was loculated on CT. Was having improvement was discharged home on oral Levaquin. Patient feels like he has been doing improved and had an outpatient scheduled chest x-ray to follow-up. Showed reoccurrence. Patient is slightly tachycardic with a pulse of 114, afebrile 96% on room air without any tachypnea accessory muscle use. Patient Has recurrent leukocytosis at 16.9 with a hemoglobin of 10, platelets of 686 trended upwards from the 20 of July patient had normalized on his white count 2 7 and 8 range prior to discharge on July 27. Hemoglobin is stable, patient's INR is 1.5, sodium is 128 potassium 3.5 chloride 94 CO2 of 29 and a BUN of 6 normal renal function glucose 104 otherwise normal LFTs. Patient's procalcitonin was never elevated. Discussed with radiology plan for CT chest with contrast to better evaluate fluid collection. Attempted to reach general surgery to see if patient would be readmitted versus VATs. They are currently in the OR. I did speak with Dr. Jensen patient's primary care physician who stated there was discussion about transfer to [facility] or other facility for surgical intervention. Patient is feeling anxious but otherwise well and asked for a dose of oral anti anxiety medication. Did give a dose of IV antibiotic based on patient's sensitivities from his culture. Patient signed out to Dr. Hardy while awaiting CT results. Patient has been hemodynamically stable with no hypoxia department. <Saturnino Hardy MD - Last Filed: 08/01/23 00:36> Medical Records Medical records narrative: [facility] discharge summary from July 19 of this year patient was admitted for left-sided empyema chest tube was placed discharged on levofloxacin Lab Data Lab results narrative: CBC remarkable for leukocytosis with a white count was 16.9, also has elevated platelets at 686. CMP remarkable for mild hyponatremia with sodium of 128. INR is 1.5. Labs: Lab Results 07/31/23 07/31/23 Range/Units 16:12 18:23 WBC 16.9 H (4.5-11.0) X10^3/uL RBC 3.61 L (4.5-5.9) X10^6/uL Hgb 10.2 L (13.5-17.5) g/dL Hct 30.2 L (41-53) % MCV 83.6 (80-100) fL MCH 28.3 (26-34) PG MCHC 33.8 (30-36) % RDW 16.0 H (11.6-14.8) % Plt Count 686 H (150-400) X10^3/uL Neut % (Auto) 83.9 H (50-75) % Lymph % (Auto) 7.4 L (25-40) % Carter % (Auto) 7.5 (3-14) % Eos % (Auto) 0.4 L (2-4) % Baso % (Auto) 0.8 (0-2) % Neut # (Auto) 06158 H (9307-2152) /uL Lymph # (Auto) 1300 (2343-2674) /uL Carter # (Auto) 1300 H (0-900) /uL Eos # (Auto) 100 (0-450) /uL Baso # (Auto) 100 (0-100) /uL PT 16.7 H (9.4-12.5) SECONDS INR 1.5 H (0.9-1.3) APTT 27 (25.1-36.5) SECONDS Sodium 128 L (137-145) mmol/L Potassium 3.5 (3.4-5.1) mmol/L Chloride 94 L (98-107) mmol/L Carbon Dioxide 29 (22-32) mmol/L BUN 6 L (9-20) mg/dL Creatinine 0.33 L (0.66-1.25) mg/dL Estimated GFR > 60 (>60) mL/min BUN/Creatinine Ratio 18.2 (6-22) Glucose 104 H (70-100) mg/dL Calcium 8.9 (8.4-10.2) mg/dL Total Bilirubin 0.5 (0.2-1.3) mg/dL AST 33 (17-59) IU/L ALT 39 (<50) IU/L Alkaline Phosphatase 61 (38-126) U/L Total Protein 7.1 (6.3-8.2) g/dL Albumin 3.2 L (3.5-5.0) g/dL Globulin 3.9 (1.7-4.1) g/dL Albumin/Globulin Ratio 0.8 L (1.0-2.8) Lipase 65 (23-300) U/L SARS-CoV-2 (PCR) Negative (Negative) Urine Dip Bedside Urine Glucose Negative Bedside Urine Bilirubin - Negative Bedside Urine Ketone - Negative Urine Specific [place] 1.005 Bedside Urine Occult Blood - Negative Bedside Urine pH 7.5 Bedside Urine Protein - Negative Bedside Urine Urobilinogen - Negative Bedside Urine Nitrite - Negative Bedside Urine Leukocytes - Negative Esterase Imaging Data Chest x-ray: My Impression: Large fluid collection in the left hemithorax with what appears to be a pneumothorax superior to this Treatment and disposition Social Determinants of Health that impact treatment or disposition: Schizoaffective disorder that appears to be well compensated Shared decision making:: Discussed plan for transfer to a facility with CT surgery, patient was in agreement Discharge Plan Departure Patient Disposition: [facility] Clinical Impression: Empyema lung Prescriptions: No Action aripiprazole 2 mg tablet 2 mg PO DAILY Rx Instructions: gets IM shot qmonth. last does was 07/11/23 levofloxacin 750 mg tablet 750 mg PO DAILY Qty: 10 0RF Referrals: Ken Jensen MD [Primary Care Provider] -
[2023-07-31] MEDS: LORazepam 0.5 MG TABLET 1 MG PO (17:10)
[2023-07-31] MEDS: levoFLOXacin 750 MG/150 ML PIGGYBACK 100 MG IV (17:14)
[2023-07-31 19:06] LABS: COVID19 -Nasal RAPID Negative (Negative)
[2023-08-01] VITALS: BP 99/66; PULSE 101; RESP 21; O2SAT 95
[2023-08-01 00:30] VITALS: BP 95/66; PULSE 107; RESP 32; O2SAT 95
== END 2023-08-01 00:55 | disposition short-term general hospital (02) ==
PROVIDERS: Emergency Medicine; Emergency Provider Emergency Medicine; Family Provider Family Medicine; PCP Family Medicine
DX: J86.9 Pyothorax without fistula (principal); Z11.52 Encounter for screening for COVID-19; Z87.891 Personal history of nicotine dependence; J90 Pleural effusion, not elsewhere classified
CPT/HCPCS: 36415; 71046; 71260; 80053; 81003; 83690; 85025; 85610; 85730; 87635; 96365; 96366; 99284; 99285; C9803; J1956; Q9967

== ENCOUNTER → 2023-11-14 15:45 | Outpatient (CLI) | payer OTHER, MEDICAID, SELFPAY ==
[2023-07-19 20:41] VITALS: BMI 19.8
--- NOTE | 2023-11-14 15:48 | DI.CT.S_ITS ---
PROCEDURE: CT CHEST WO CON INDICATIONS: Pyothorax without fistula TECHNIQUE: Noncontrast 5 mm thick sections acquired from the pulmonary apices to the posterior costophrenic angles. 1 mm lung window, 5 mm thick coronal and sagittal and 7 mm axial MIP reformats were then acquired. For radiation dose reduction, the following was used: automated exposure control, adjustment of mA and/or kV according to patient size. COMPARISON: [facility], CT, CT CHEST W CON, 07/31/2023, 16:55. [facility], CT, CT CHEST WO CON, 07/24/2023, 13:14. FINDINGS: Image quality: Diagnostic. Lower Neck: No enlarged lymph nodes. Thyroid: No thyroid nodules which require sonographic follow up, per consensus guidelines. Axillae: No enlarged lymph nodes. Chest Wall: Unremarkable. Bones: Prior left-sided rib thoracotomy changes stable Lungs and Pleura: Mild pulmonary emphysema noted. Large left-sided hydropneumothorax has much improved, and there is small residual probably loculated pleural effusion measuring up to 1.7 cm in thickness. No pneumothorax. Peripheral pulmonary reticulation noted. Right lung and pleural space clear. Heart: Heart size is normal. No pericardial effusion. Thoracic Vessels: The aorta and pulmonary arteries demonstrate normal size. Mediastinum and Usha: No enlarged lymph nodes. Esophagus: No wall thickening. No hiatal hernia. Upper Abdomen: Visualized upper abdomen solid organs and bowel loops appear normal. IMPRESSION: Persistent but much improved loculated left pleural effusion now measures 1.7 cm in thickness. Associated pleural scarring or atelectasis the lung base and left-sided rib thoracotomy changes. Underlying pulmonary emphysema Approved by: Timur Espinosa M.D. on 11/15/2023 at 14:22
== END ==
PROVIDERS: Family Provider Family Medicine; PCP Family Medicine; Referring Provider Internal Medicine Infectious Disease; Visit Provider Internal Medicine Infectious Disease
DX: J86.9 Pyothorax without fistula (principal); J90 Pleural effusion, not elsewhere classified; J43.9 Emphysema, unspecified
CPT/HCPCS: 71250

== ENCOUNTER → 2024-01-17 | Outpatient (CLI) | payer OTHER, MEDICAID, SELFPAY ==
[2023-07-19 20:41] VITALS: BMI 19.8
--- NOTE | 2024-01-17 15:28 | DI.CT.S_ITS ---
PROCEDURE: CT CHEST WO CON INDICATIONS: Pyothorax without fistula TECHNIQUE: Noncontrast 5 mm thick sections acquired from the pulmonary apices to the posterior costophrenic angles. 1 mm lung window, 5 mm thick coronal and sagittal and 7 mm axial MIP reformats were then acquired. For radiation dose reduction, the following was used: automated exposure control, adjustment of mA and/or kV according to patient size. COMPARISON: [facility], CT, CT CHEST WO CON, 11/14/2023, 16:05. FINDINGS: Image quality: Diagnostic. Lower Neck: No enlarged lymph nodes. Thyroid: No thyroid nodules which require sonographic follow up, per consensus guidelines. Axillae: No enlarged lymph nodes. Chest Wall: Unremarkable. Bones: Left rib thoracotomy changes are again noted. Degenerative changes of the spine.. Lungs and Pleura: Small partially loculated left pleural effusion with associated pleural thickening is similar to prior. There is associated linear atelectasis versus scarring with some bronchiectasis along the left major fissure, also similar appearance to prior. Mild centrilobular emphysematous changes. Scattered calcified granulomas. Heart: Heart size is normal. No pericardial effusion. Thoracic Vessels: The aorta and pulmonary arteries demonstrate normal size. Atherosclerotic vascular calcifications. Mediastinum and Usha: No enlarged lymph nodes. Esophagus: No wall thickening. No hiatal hernia. Upper Abdomen: Visualized upper abdomen solid organs and bowel loops appear normal. IMPRESSION: Similar appearance of left pleural effusion and pleural thickening compared to prior. There is adjacent so she did scarring. Overall, findings are similar appearance to prior. Dictated by: Calvin Suresh M.D. on 01/17/2024 at 16:56 Approved by: Calvin Suresh M.D. on 01/17/2024 at 17:01
== END ==
PROVIDERS: Family Provider Family Medicine; PCP Family Medicine; Referring Provider Internal Medicine Infectious Disease; Visit Provider Internal Medicine Infectious Disease
DX: J86.9 Pyothorax without fistula (principal); J90 Pleural effusion, not elsewhere classified
CPT/HCPCS: 71250

== ENCOUNTER → 2024-07-24 13:51 | Outpatient (CLI) | payer OTHER, MEDICAID, SELFPAY ==
[2023-07-19 20:41] VITALS: BMI 19.8
--- NOTE | 2024-07-24 13:52 | DI.CT.S_ITS ---
PROCEDURE: CT CHEST WO CON INDICATIONS: L EMPYEMA W RESIDUAL SMALL PARTIALLY LOCULATED EFF TECHNIQUE: Noncontrast 5 mm thick sections acquired from the pulmonary apices to the posterior costophrenic angles. 1 mm lung window, 5 mm thick coronal and sagittal and 7 mm axial MIP reformats were then acquired. For radiation dose reduction, the following was used: automated exposure control, adjustment of mA and/or kV according to patient size. COMPARISON: [facility], CT, CT CHEST WO [facility], 01/17/2024, 15:36. FINDINGS: Image quality: Diagnostic. Lungs and Pleura: Interval decrease in size of partially loculated left-sided pleural effusion along the anterolateral left hemithorax. A mild degree of residual pleural thickening in this location persists. In addition, there is focal pleural thickening along the posterior mid hemithorax likely sequelae of prior empyema. No significant amount of pleural fluid bilaterally. No evidence of pneumothorax. Mucous plugging throughout segmental bronchi of the left lower lobe with similar appearance seen previously. Mild degree of centrilobular emphysema involving both upper lobes with associated subpleural interstitial thickening underlying the focal areas of pleural thickening within the left hemithorax and most likely related to scarring. Focal platelike opacity along the anterior left lower lobe abutting the major fissure with areas of bronchiectasis most likely scarring. No enlarging or suspicious pulmonary nodules. Lower Neck: No enlarged lymph nodes. Thyroid: No thyroid nodules which require sonographic follow up, per consensus guidelines. Axillae: No enlarged lymph nodes. Chest Wall: Unremarkable. Bones: Changes from prior left thoracotomy. Heart: Heart size is normal. No pericardial effusion. Thoracic Vessels: The aorta and pulmonary arteries demonstrate normal size. Mediastinum and Usha: No enlarged lymph nodes. Esophagus: No wall thickening. No hiatal hernia. Upper Abdomen: Visualized upper abdomen solid organs and bowel loops appear normal. IMPRESSION: 1. Interval decrease in size of partially loculated left-sided pleural effusion along the anterolateral left hemithorax with mild degree of residual pleural-parenchymal thickening and scarring. 2. Persistent mucous plugging throughout left lower lobe segmental bronchi. Dictated by: Julián Roman M.D. on 07/25/2024 at 11:19 Approved by: Julián Roman M.D. on 07/25/2024 at 11:35
== END ==
PROVIDERS: Family Provider Family Medicine; PCP Family Medicine; Referring Provider Internal Medicine Infectious Disease; Visit Provider Internal Medicine Infectious Disease
DX: J86.9 Pyothorax without fistula (principal); J90 Pleural effusion, not elsewhere classified; J43.2 Centrilobular emphysema; T17.59 Other foreign object in bronchus
CPT/HCPCS: 71250